=== PATIENT | male | born 1990 | race Caucasian/White ===

== ENCOUNTER 2016-12-20 09:42 | Emergency (ER) | payer OTHER ==
[~2016-12-20] VITALS: Ht 187.9 cm; Wt 129.3 kg
[~2016-12-20 09:42] MED LIST: AMOXICILLIN500 MG PO; ANUSOL-HC25 MG RC; AUGMENTIN ES-6100 ML PO; BACTRIM DS 8001 TA1 PO; CEPHALEXIN500 M1 PO; CLARITIN5 MG/5 ML PO; CORTISPORIN 1%-10 M1 OT; Claritin-D 10 M1 T24 PO; FLAGYL500 MG PO; FLEXERIL5 MG PO; HYDROCODONE BIT1 T11 PO; IBU800 M1 PO; LEVAQUIN750 M1 PO; LEVOFLOXACIN500 MG PO; MEDROL DOSEPAK4 MG PO; MOTRIN800 MG PO; NKHM; NO DAILY MEDS; NORCO 5-325 TA1 EACH PO; PENICILLIN VK500 MG PO; PREDNICOT20 MG PO; PREDNISONE10 MG PO; PROAIR HFA0.09 MG/AC INH; Peridex 473 ML473 ML PO; TRAMADOL HCL50 MG PO; TRIMOX500 MG PO; VENTOLIN H0.09 MG/AC INH; ZITHROMAX Z PA250 MG PO; ZOFRAN4 MG PO
[2016-12-20 09:56] VITALS: BP 116/78
[2016-12-20] MEDS ORDERED: Tobrex Ophth S2.5 ML OPH (10:40)
[2016-12-20] MEDS ORDERED: ACULAR 0.5%3 ML OPH (10:40)
== END 2016-12-20 10:45 | disposition home or self-care (01) ==
LOC: ED 09:42
DX: S05.02XA Injury of conjunctiva and corneal abrasion without foreign body, left eye, initial encounter (principal); F17.200 Nicotine dependence, unspecified, uncomplicated; X58.XXXA Exposure to other specified factors, initial encounter; Y93.89 Activity, other specified; Y92.9 Unspecified place or not applicable; Y99.9 Unspecified external cause status

== ENCOUNTER → 2017-03-19 | Outpatient (CLI) | payer OTHER ==
[~2017-03-19] MED LIST changes: +ACULAR 0.5%3 ML OPH; +Tobrex Ophth S2.5 ML OPH
== END | disposition home or self-care (01) ==
LOC: CT 13:46
DX: S92.2 Fracture of other and unspecified tarsal bone(s) (principal); S90.30XD Contusion of unspecified foot, subsequent encounter; S92.253D Displaced fracture of navicular [scaphoid] of unspecified foot, subsequent encounter for fracture with routine healing; S90.30XA Contusion of unspecified foot, initial encounter; X58.XXXD Exposure to other specified factors, subsequent encounter

== ENCOUNTER 2017-08-12 12:22 | Emergency (ER) | payer OTHER ==
[~2017-08-12] VITALS: Ht 187.9 cm; Wt 131.5 kg
[2017-08-12 12:41] VITALS: BP 154/91
[2017-08-12] MEDS ORDERED: NORCO 5-325 TA1 EACH PO (13:24)
[2017-08-12] MEDS ORDERED: AMOXICILLIN500 M2 PO (13:24)
== END 2017-08-12 14:23 | disposition home or self-care (01) ==
LOC: ED 12:22
DX: H66.91 Otitis media, unspecified, right ear (principal); F17.200 Nicotine dependence, unspecified, uncomplicated

== ENCOUNTER 2017-10-13 13:32 | Emergency (ER) | payer OTHER ==
[~2017-10-13] VITALS: Ht 187.9 cm; Wt 140.6 kg
[~2017-10-13 13:32] MED LIST changes: +AMOXICILLIN500 M2 PO
[2017-10-13 13:48] VITALS: BP 135/79
[2017-10-13] MEDS ORDERED: NAPROSYN500 MG PO (14:06)
[2017-10-13] MEDS ORDERED: CYCLOBENZAPRINE10 MG PO (14:06)
== END 2017-10-13 14:47 | disposition home or self-care (01) ==
LOC: ED 13:32
DX: M54.42 Lumbago with sciatica, left side (principal); F17.200 Nicotine dependence, unspecified, uncomplicated; E78.5 Hyperlipidemia, unspecified; E66.9 Obesity, unspecified

== ENCOUNTER → 2017-12-09 | Outpatient (CLI) | payer OTHER ==
[~2017-12-09] MED LIST changes: +CYCLOBENZAPRINE10 MG PO; +DOXYCYCLINE100 M3 PO; +NAPROSYN500 MG PO; +NORCO 7.5-3251 EACH PO; +XARELTO10 MG PO
== END | disposition home or self-care (01) ==
LOC: RESCLI 02:59
DX: Z01.818 Encounter for other preprocedural examination (principal); R00.0 Tachycardia, unspecified; R03.0 Elevated blood-pressure reading, without diagnosis of hypertension; E66.01 Morbid (severe) obesity due to excess calories; Z72.0 Tobacco use

== ENCOUNTER → 2017-12-12 | Outpatient (CLI) | payer OTHER ==
[2017-12-12 13:49] LABS: BASO # 0.1 10*3/uL (0.0-0.1); BASO % 0.7 % (0.0-1.0); EOS # 0.2 10*3/uL (0.0-0.4); EOS % 2.4 % (1.0-4.0); HEMATOCRIT 46.5 % (42.0-52.0); HEMOGLOBIN 15.6 g/dl (14.0-18.0); LYMPH # 2.3 10*3/uL (1.3-4.4); LYMPH % 30.8 % (27.0-41.0); MEAN CELL VOLUME 86.8 fl (80.0-94.0); MEAN CORPUSCULAR HGB 29.1 pg (27.0-31.0); MEAN CORPUSCULAR HGB CONC 33.5 g/dl (33.0-37.0); MEAN PLATELET VOLUME 9.2 fl (9.6-12.3); MONO # 0.6 10*3/uL (0.1-1.0); MONO % 7.6 % (3.0-9.0); NEUT # 4.3 10*3/uL (2.3-7.9); NEUT % 58.1 % (47.0-73.0); PLATELET COUNT AUTOMATED 250 10*3/uL (130-400); RED BLOOD COUNT 5.36 10*6/uL (4.50-5.90); RED CELL DISTRI WIDTH 12.2 % (0-14.5); WHITE BLOOD COUNT 7.5 10*3/uL (4.8-10.8)
[2017-12-12 14:41] LABS: ACT PARTIAL THROMBO TIME 25.3 SECONDS (20.8-31.5)
== END | disposition home or self-care (01) ==
LOC: LAB 12:36
PROVIDERS: Podiatrist
DX: S92.254D Nondisplaced fracture of navicular [scaphoid] of right foot, subsequent encounter for fracture with routine healing (principal); S92.234D Nondisplaced fracture of intermediate cuneiform of right foot, subsequent encounter for fracture with routine healing; X58.XXXD Exposure to other specified factors, subsequent encounter

== ENCOUNTER → 2017-12-18 | Day surgery (SDC) | payer OTHER ==
[~2017-12-18] VITALS: Ht 157.4 cm; Wt 140.6 kg
[2017-12-18] VITALS (9 sets, daily range): BP systolic 110–156; BP diastolic 51–90
--- NOTE | ~2017-12-18 | O ---
[place], [place] OPERATIVE NOTE NAME: IQRA FRIEDMAN [facility] #: [id number] UNIT #: [id number] ROOM: DOCTOR: FRANK KAUR DPM BIRTHDATE: [birth year] DOS: 12/18/2017 SURGEON: Dr. Frank Kaur HAY SORTER: Delbert Cordero, PGY3 PREOPERATIVE DIAGNOSES: Right lower extremity: 1. Gastrocnemius equinus. 2. Calcaneal valgus. 3. Midfoot arthritis. 4. Hallux valgus/hallux limitus. POSTOPERATIVE DIAGNOSES: Right lower extremity: 1. Gastrocnemius equinus. 2. Calcaneal valgus. 3. Midfoot arthritis. 4. Hallux valgus/hallux limitus. PROCEDURE: 1. Gastrocnemius recession. 2. Calcaneal osteotomy slid medially. 3. Midfoot fusion, navicular cuneiform. 4. Lapidus bunionectomy. PROCEDURE IN DETAIL: The patient was seen in preop holding area, placed in supine position and agreed. He agreed to site marking and he was brought into the OR, placed on a well padded OR table where general anesthesia was achieved. Once general anesthesia was achieved, the right foot and leg were prepped and draped in sterile fashion, hemostasis was accomplished with a thigh tourniquet. At this point, appropriate timeout was performed and the operating room concurred. At this time, the tourniquet was inflated to 300 mmHg. PROCEDURE NUMBER 1: Gastrocnemius recession. Attention was directed to the posteromedial one-third of the lower leg where an incision was made over the gastroc aponeurosis. It was deepened in the same plane using sharp scissors, avoid neurovascular structures, carried deep down to the deep tissues where it was incised. Deep fascia was identified and at this time the gastroc aponeurosis was identified. At this time, a Destiney procedure was performed increasing range of motion of the ankle joint. The deep tissue was closed using 0 Vicryl. Skin was closed with 2-0 nylon. PROCEDURE NUMBER 2: Percutaneous calcaneal displacement osteotomy slid medially. Attention was directed to the inferior medial aspect of the calcaneus where a small stab incision made below the inferior cortex of the calcaneus keeping the same plane using sharp scissors, avoiding neurovascular structures, carried down to the deep tissues where a blunt subfascial dissection was performed from inferior medial to superomedially. At this time, the skin was tented superomedially and at this point in time, another stab incision was made. Next, a Gigli saw was retrieved from superior medial to inferior medial. Next, a straight hemostat was used to go across from superior medial to superior [place], [place] OPERATIVE NOTE [facility] [id number] UNIT #: [id number] ROOM: DOCTOR: FRANK KAUR DPM BIRTHDATE: [birth year] lateral over the dorsal surface of the calcaneus. This was done anterior to the Achilles tendon and posterior neurovascular bundles in the Kager's triangle. The skin was tented laterally and a stab incision made laterally avoiding the sural nerve. The hemostat then was removed from the medial incision and entered into the lateral incision over the superior aspect of the calcaneus. At this point in time, the Gigli saw was obtained through the superior medial incision and brought through the superior portion of the calcaneus and exiting out superior lateral. Next, a stab incision was made adjacent to the superior medial one just opposite to that where a stab incision made and again blunt subfascial dissection was performed superior lateral, superior inferiorly. At this time, using a hemostat, the end of the Gigli saw of the superior lateral aspect of the calcaneus was obtained and brought down inferiorly laterally from superior lateral to inferior lateral. At this time, it was checked on fluoroscopy, noting good anatomic alignment and the Gigli saw was used to perform a percutaneous calcaneal displacement osteotomy. The Gigli saw was cut from the skin. It was exited out of the medial lateral aspect of the calcaneus. At this time, the calcaneus was slid medially approximately 1 cm and it was locked in place and this was fixated with two 7.3 Synthes cannulated screws. This was fixated and noted to be very good fixation, was checked on the lateral view as well as a calcaneal axial view and noted to be in good position. The skin was then closed in 2-0 nylon. PROCEDURE NUMBER 3: Midfoot fusion. Attention was directed to the medial aspect of the foot where an incision was made along the dorsal medial aspect of the tarsal bones. This was deepened in the same plane with sharp scissors, avoiding neurovascular structures, carried down to the deep tissues. At this time, there was significant amount of arthrosis noted through the navicular cuneiform and the cuneiform joints. The prominent bone was resected and excised removed in total with the osteotome and mallet. This was resected and at this point in time, the navicular cuneiform joint was taken down. There was noted to be a significant amount of arthrosis here within the dorsal and medial portion of this bone and the articular surface was taken down. A significant amount of time was spent preparing the joint for fusion with using osteotomes, mallets, rongeurs, high speed burs, curettes and 2.5 drills. Significant amount of time was spent preparing exposed only cancellous bone here with exposed navicular cuneiform joint. This was temporally fixated and checked to be in good anatomic alignment. PROCEDURE NUMBER 4: Lapidus bunionectomy. Attention was directed at the tarsometatarsal joint number 1. Incision was made, it was deepened in the same plane using sharp scissors, avoiding neurovascular structures, carried down through the deep tissues. At this time, the TMT 1 was exposed. Using oscillating saw, osteotomes, mallets, rongeurs, a significant amount of time was spent preparing the joint at the TMT 1. This was prepared using power saw, osteotomes, mallets, curettes and 2.5 drill bits. At this time, prepared the joint with raw cancellous bone exposed. Good bleeding noted at the area, did temporary fixing and noted to be in good anatomic alignment, it was temporarily fixated. At this point in time, temporary fixation noted. The Synthes 4.0 solid cortical screw was placed from the distal proximal and there was another one turn from inferior metatarsal to lateral navicular, from the medial [place], [place] OPERATIVE NOTE NAME: IQRA FRIEDMAN UNIT #: [id number] ROOM: DOCTOR: FRANK KAUR DPM BIRTHDATE: [birth year] navicular to the first metatarsal and also the intermediate cuneiform and another screw from first metatarsal, second metatarsal providing multiple points of fixation with 4.0 solid cortical screws were used in the procedure today stabilizing the TMT 1 as well as the navicular cuneiform joint with the construct. There was a total of 6 screws used, one from the navicular to the area of the medial cuneiform, one from the navicular to the medial cuneiform and the base of first metatarsal, one from the base of first metatarsal, second metatarsal and one from the base of the first metatarsal and navicular laterally and one from the medial aspect of the first metatarsal to the navicular medially. At this point in time, all voided areas were packed with allogenic bone, which was soaked in the patient's bone. The alarm on the tourniquet was not working and quarry manager or nurse identifies as 1 hour 48 minutes of tourniquet use was realized and the tourniquet was dropped immediately. The remaining portion of the bone graft was packed tightly into the TMT 1, navicular cuneiform joints and checked under fluoroscopy and noted to be in good anatomic alignment. The surgical wounds were sutured with 0 Vicryl for deep tissues and the skin was closed using 2-0 nylon. There were many problems with instrumentation, which delayed the surgery to last as long as it did as the equipment was not ready or could not be found throughout the procedure for a significant period of time, which delayed the surgery take out longer to be done, but when the tourniquet was dropped, good cap refill time was noted to return to all digits of the right foot immediately. The wounds closed very nicely with a combination of Vicryl and 2-0 nylon. The patient was anesthetized with 30 mL of 0.5% plain Marcaine, 10 mL proximally gastrocsoleus site and 20 around the ankle. The surgical wounds were dressed with Betadine-soaked Adaptic and 4x4s, Soo fashion. A Pereira compressive univalved type of BK cast was applied to his right lower extremity. He tolerated the procedure well. FRANK KAUR DPM CM:OPRECORD:OPERATIVE NOTE 2351 4 FRANK KAUR DPM 12/19/17144 interface
--- NOTE | ~2017-12-18 | WRIGHTHP ---
[place], [place] PATIENT HISTORY AND PHYSICAL EXAM NAME: IQRA FRIEDMAN [facility] #: [id number] UNIT #: [id number] ROOM: DOCTOR: EDDIE KAUR DPM BIRTHDATE: [birth year] DOS: 12/18/2017 INDICATIONS: The patient is seen for a chief complaint of painful right foot. He has a Worker's Comp injury where he sustained an injury to his foot, subsequently he has developed osteoarthritis, pain and deformity of his right foot. There is noted to be a navicular cuneiform bridge, a mild hallux valgus deformity with a mild dorsal bunion, secondary midfoot arthrosis, all related to the deformity. Upon resting calcaneal stance position, patient pronates through his foot and has a calcaneal valgus deformity with increased pain to the medial and longitudinal arch in the midfoot, right. With this in mind, the consent was reviewed with him in detail in the office. He signed off, acknowledged it. Also today prior to surgery, appropriate site marking was performed. He and his family member were present and reviewed the consent and he appeared to understand that as well. With this in mind, he was set up for surgery at the [facility]. Appropriate site marking was performed. Appropriate review of the consent was performed and also perioperative management in particular postop management in terms of movement in an attempt to prevent DVT using the anticoagulation therapy, a postoperative antibiotic and staying nonweightbearing was reviewed with him and family. He agreed and understood this and verbally consented to all this. LOWER EXTREMITY PHYSICAL EXAMINATION: VASCULAR: Palpable pedal pulses, 2/4 DP and PT bilaterally. Bilaterally equal cap refill time. NEUROLOGICAL: He has intact sensation to his right lower extremity. DERMATOLOGICAL: There are no gross deformities. MUSCULOSKELETAL: He has a tight posterior muscle group, has ankle contracture resulting in a gastroc soleus equinus contracture. Also, has a calcaneal valgus plane upon resting calcaneal stance position and pain along the medial and longitudinal arch of the mid foot of the right. Also, there is limitation in range of motion of the first metatarsophalangeal secondary to deformity of the mid foot with an elevated first ray and dorsal bunion. ORTHOPEDIC: Calcaneal valgus midfoot arthritis, hallux valgus and dorsal bunion of the right foot. SURGEON: Dr. Eddie Kaur. PIPELINE MAINTENANCE SUPERVISOR: Delbert Cordero, PGY3. PREOPERATIVE DIAGNOSES: Right lower extremity. 1. Gastrocnemius equinus. 2. Calcaneal valgus. 3. Mid foot arthritis. 4. Hallux valgus/hallux limitus. POSTOPERATIVE DIAGNOSES: Right lower extremity. 1. Gastrocnemius equinus. 2. Calcaneal valgus. 3. Mid foot arthritis. 4. Hallux valgus/hallux limitus. [place], [place] PATIENT HISTORY AND PHYSICAL EXAM [facility]: [facility] [id number] UNIT #: [id number] ROOM: DOCTOR: EDDIE KAUR DPM BIRTHDATE: [birth year] PROCEDURE: 1. Gastrocnemius recession. 2. Calcaneal osteotomy slid medially. 3. Midfoot fusion of the navicular cuneiform. 4. Lapidus EDDIE KAUR DPM CM:HISPHYS:PATIENT HISTORY AND PHYSICAL EXAMINATION [id number] EDDIE KAUR DPM 12/19/17 0121 interface
== END ==
LOC: SDC 12-12 12:30
DX: M21.6X1 Other acquired deformities of right foot (principal); M13.871 Other specified arthritis, right ankle and foot; F17.210 Nicotine dependence, cigarettes, uncomplicated; M20.11 Hallux valgus (acquired), right foot; M21.071 Valgus deformity, not elsewhere classified, right ankle

== ENCOUNTER 2017-12-19 22:45 | Emergency (ER) | payer OTHER ==
[~2017-12-19] VITALS: Ht 187.9 cm; Wt 140.6 kg
[2017-12-19 23:26] LABS: BASO % 0.3 % (0.0-1.0); EOS # 0.1 10*3/uL (0.0-0.4); EOS % 0.5 % (1.0-4.0); HEMOGLOBIN 12.5 g/dl (14.0-18.0); LYMPH % 16.3 % (27.0-41.0); MEAN CELL VOLUME 87.6 fl (80.0-94.0); MEAN CORPUSCULAR HGB 28.8 pg (27.0-31.0); MEAN CORPUSCULAR HGB CONC 32.9 g/dl (33.0-37.0); MEAN PLATELET VOLUME 8.8 fl (9.6-12.3); MONO # 1.1 10*3/uL (0.1-1.0); MONO % 9.2 % (3.0-9.0); NEUT # 9.1 10*3/uL (2.3-7.9); NEUT % 73.1 % (47.0-73.0); PLATELET COUNT AUTOMATED 243 10*3/uL (130-400); RED BLOOD COUNT 4.34 10*6/uL (4.50-5.90); RED CELL DISTRI WIDTH 12.2 % (0-14.5); WHITE BLOOD COUNT 12.4 10*3/uL (4.8-10.8)
[2017-12-19 23:41] LABS: ALBUMIN 3.8 gm/dl (3.1-4.5); ALKALINE PHOSPHATASE 74 U/L (45-117); BUN 8 mg/dl (7-24); CHLORIDE 101 mmol/L (98-107); CREATININE 0.99 mg/dL (0.70-1.30); POTASSIUM 3.2 mmol/L (3.5-5.1); SGOT/AST 26 IU/L (3-35); SGPT/ALT 37 U/L (12-78); SODIUM 137 mmol/L (136-145)
[2017-12-19 23:54] LABS: CPK 1072 U/L (39-308)
[2017-12-20 00:40] VITALS: BP 153/86
== END 2017-12-20 02:24 | disposition short-term general hospital (02) ==
LOC: ED 22:45
PROVIDERS: Student in an Organized Health Care Education/Training Program
DX: T79.A21A Traumatic compartment syndrome of right lower extremity, initial encounter (principal); E83.41 Hypermagnesemia; R73.9 Hyperglycemia, unspecified; E83.51 Hypocalcemia; Z79.899 Other long term (current) drug therapy; X58.XXXA Exposure to other specified factors, initial encounter

== ENCOUNTER → 2018-02-24 | Outpatient (CLI) | payer OTHER ==
[~2018-02-24] MED LIST changes: +PERCOCET 7.5-31 EACH PO; +SEPTDS PO
== END ==
LOC: WOUNDCARE 03:04
DX: S97.81XA Crushing injury of right foot, initial encounter (principal); E78.5 Hyperlipidemia, unspecified; F17.210 Nicotine dependence, cigarettes, uncomplicated; X58.XXXA Exposure to other specified factors, initial encounter; Y93.89 Activity, other specified; Y92.89 Other specified places as the place of occurrence of the external cause; Y99.8 Other external cause status

== ENCOUNTER → 2018-02-26 | Outpatient (CLI) | payer OTHER ==
[~2018-02-26] MED LIST changes: -PERCOCET 7.5-31 EACH PO; -SEPTDS PO
== END ==
LOC: RAD 13:07
DX: Z13.89 Encounter for screening for other disorder (principal); I81 Portal vein thrombosis

== ENCOUNTER 2018-03-06 01:12 | Emergency (ER) | payer SELFPAY ==
[~2018-03-06] VITALS: Ht 187.9 cm; Wt 147.4 kg
[2018-03-06] MEDS ORDERED: SEPTDS PO (01:33)
[2018-03-06] MEDS ORDERED: PERCOCET 7.5-31 EACH PO (01:34)
[2018-03-06 01:36] LABS: BASO # 0.1 10*3/uL (0.0-0.1); BASO % 0.8 % (0.0-1.0); EOS # 0.3 10*3/uL (0.0-0.4); EOS % 2.8 % (1.0-4.0); HEMATOCRIT 48.7 % (42.0-52.0); HEMOGLOBIN 15.7 g/dl (14.0-18.0); LYMPH # 2.6 10*3/uL (1.3-4.4); LYMPH % 29.1 % (27.0-41.0); MEAN CELL VOLUME 87.6 fl (80.0-94.0); MEAN CORPUSCULAR HGB 28.2 pg (27.0-31.0); MEAN CORPUSCULAR HGB CONC 32.2 g/dl (33.0-37.0); MEAN PLATELET VOLUME 8.8 fl (9.6-12.3); MONO # 0.7 10*3/uL (0.1-1.0); MONO % 7.5 % (3.0-9.0); NEUT # 5.3 10*3/uL (2.3-7.9); PLATELET COUNT AUTOMATED 241 10*3/uL (130-400); RED BLOOD COUNT 5.56 10*6/uL (4.50-5.90); RED CELL DISTRI WIDTH 13.4 % (0-14.5); WHITE BLOOD COUNT 8.9 10*3/uL (4.8-10.8)
[2018-03-06 01:53] LABS: ALBUMIN 3.6 gm/dl (3.1-4.5); ALKALINE PHOSPHATASE 92 U/L (45-117); BUN 13 mg/dl (7-24); CHLORIDE 104 mmol/L (98-107); POTASSIUM 4.2 mmol/L (3.5-5.1); SGOT/AST 14 IU/L (3-35); SGPT/ALT 38 U/L (12-78); SODIUM 137 mmol/L (136-145); TOTAL PROTEIN 7.2 gm/dL (6.4-8.2)
[2018-03-06 01:54] LABS: TROPONIN I < 0.015 ng/ml (<0.045)
[2018-03-06 03:04] VITALS: BP 118/74
== END 2018-03-06 03:32 | disposition home or self-care (01) ==
LOC: ED 01:12
PROVIDERS: Student in an Organized Health Care Education/Training Program
DX: R07.89 Other chest pain (principal); R06.02 Shortness of breath; F17.200 Nicotine dependence, unspecified, uncomplicated; E78.5 Hyperlipidemia, unspecified; E66.9 Obesity, unspecified; Z79.899 Other long term (current) drug therapy

== ENCOUNTER → 2018-03-19 | Outpatient (CLI) | payer OTHER ==
[~2018-03-19] MED LIST changes: +PERCOCET 7.5-31 EACH PO; +SEPTDS PO
== END | disposition home or self-care (01) ==
LOC: WOUNDCARE 01:46
DX: S97.81XA Crushing injury of right foot, initial encounter (principal); E78.5 Hyperlipidemia, unspecified; F17.210 Nicotine dependence, cigarettes, uncomplicated; X58.XXXA Exposure to other specified factors, initial encounter; Y93.89 Activity, other specified; Y92.89 Other specified places as the place of occurrence of the external cause; Y99.8 Other external cause status

== ENCOUNTER → 2018-03-19 | Outpatient (CLI) | payer OTHER ==
[2018-03-19 09:34] VITALS: BP 141/70
== END | disposition home or self-care (01) ==
LOC: PICC 03-17 07:37
DX: M86.9 Osteomyelitis, unspecified (principal)

== ENCOUNTER → 2018-03-20 | Outpatient (CLI) | payer OTHER | END | disposition home or self-care (01) | LOC: WOUNDCARE 00:24 | DX: S97.81XA Crushing injury of right foot, initial encounter (principal); E78.5 Hyperlipidemia, unspecified; F17.210 Nicotine dependence, cigarettes, uncomplicated; X58.XXXA Exposure to other specified factors, initial encounter; Y93.89 Activity, other specified; Y92.89 Other specified places as the place of occurrence of the external cause; Y99.8 Other external cause status ==

== ENCOUNTER → 2018-03-24 | Outpatient (CLI) | payer OTHER | END | disposition home or self-care (01) | LOC: WOUNDCARE 10:43 | DX: S97.81XA Crushing injury of right foot, initial encounter (principal); E78.5 Hyperlipidemia, unspecified; F17.210 Nicotine dependence, cigarettes, uncomplicated; X58.XXXA Exposure to other specified factors, initial encounter; Y93.89 Activity, other specified; Y92.89 Other specified places as the place of occurrence of the external cause; Y99.8 Other external cause status ==

== ENCOUNTER → 2018-03-25 | Outpatient (CLI) | payer OTHER | END | disposition home or self-care (01) | LOC: WOUNDCARE 04:17 | DX: S97.81XA Crushing injury of right foot, initial encounter (principal); E78.5 Hyperlipidemia, unspecified; F17.210 Nicotine dependence, cigarettes, uncomplicated; X58.XXXA Exposure to other specified factors, initial encounter; Y93.89 Activity, other specified; Y92.89 Other specified places as the place of occurrence of the external cause; Y99.8 Other external cause status ==

== ENCOUNTER → 2018-03-26 | Outpatient (CLI) | payer OTHER | END | disposition home or self-care (01) | LOC: WOUNDCARE 01:48 | DX: S97.81XA Crushing injury of right foot, initial encounter (principal); E78.5 Hyperlipidemia, unspecified; F17.210 Nicotine dependence, cigarettes, uncomplicated; X58.XXXA Exposure to other specified factors, initial encounter; Y93.89 Activity, other specified; Y92.89 Other specified places as the place of occurrence of the external cause; Y99.8 Other external cause status ==

== ENCOUNTER → 2018-03-27 | Outpatient (CLI) | payer OTHER | END | disposition home or self-care (01) | LOC: WOUNDCARE 05:48 | DX: S97.81XA Crushing injury of right foot, initial encounter (principal); E78.5 Hyperlipidemia, unspecified; F17.210 Nicotine dependence, cigarettes, uncomplicated; X58.XXXA Exposure to other specified factors, initial encounter; Y93.89 Activity, other specified; Y92.89 Other specified places as the place of occurrence of the external cause; Y99.8 Other external cause status ==

== ENCOUNTER → 2018-04-01 | Outpatient (CLI) | payer OTHER | END | disposition home or self-care (01) | LOC: WOUNDCARE 08:20 | DX: S97.81XA Crushing injury of right foot, initial encounter (principal); E78.5 Hyperlipidemia, unspecified; F17.210 Nicotine dependence, cigarettes, uncomplicated; X58.XXXA Exposure to other specified factors, initial encounter; Y93.89 Activity, other specified; Y92.89 Other specified places as the place of occurrence of the external cause; Y99.8 Other external cause status ==

== ENCOUNTER → 2018-04-02 | Outpatient (CLI) | payer OTHER | END | disposition home or self-care (01) | LOC: WOUNDCARE 02:11 | DX: S97.81XA Crushing injury of right foot, initial encounter (principal); E78.5 Hyperlipidemia, unspecified; F17.210 Nicotine dependence, cigarettes, uncomplicated; X58.XXXA Exposure to other specified factors, initial encounter; Y93.89 Activity, other specified; Y92.89 Other specified places as the place of occurrence of the external cause; Y99.8 Other external cause status ==

== ENCOUNTER → 2018-04-04 | Outpatient (CLI) | payer OTHER | END | disposition home or self-care (01) | LOC: WOUNDCARE 02:01 | DX: S97.81XA Crushing injury of right foot, initial encounter (principal); E78.5 Hyperlipidemia, unspecified; F17.210 Nicotine dependence, cigarettes, uncomplicated; X58.XXXA Exposure to other specified factors, initial encounter; Y93.89 Activity, other specified; Y92.89 Other specified places as the place of occurrence of the external cause; Y99.8 Other external cause status ==

== ENCOUNTER → 2018-04-07 | Outpatient (CLI) | payer OTHER | END | disposition home or self-care (01) | LOC: WOUNDCARE 02:52 | DX: S97.81XA Crushing injury of right foot, initial encounter (principal); E78.5 Hyperlipidemia, unspecified; F17.210 Nicotine dependence, cigarettes, uncomplicated; X58.XXXA Exposure to other specified factors, initial encounter; Y93.89 Activity, other specified; Y92.89 Other specified places as the place of occurrence of the external cause; Y99.8 Other external cause status ==

== ENCOUNTER → 2018-04-08 | Outpatient (CLI) | payer OTHER | END | disposition home or self-care (01) | LOC: WOUNDCARE 02:39 | DX: S97.81XA Crushing injury of right foot, initial encounter (principal); E78.5 Hyperlipidemia, unspecified; F17.210 Nicotine dependence, cigarettes, uncomplicated; X58.XXXA Exposure to other specified factors, initial encounter; Y93.89 Activity, other specified; Y92.89 Other specified places as the place of occurrence of the external cause; Y99.8 Other external cause status ==

== ENCOUNTER → 2018-04-09 | Outpatient (CLI) | payer OTHER | END | disposition home or self-care (01) | LOC: WOUNDCARE 03:48 | DX: S97.81XA Crushing injury of right foot, initial encounter (principal); E78.5 Hyperlipidemia, unspecified; F17.210 Nicotine dependence, cigarettes, uncomplicated; X58.XXXA Exposure to other specified factors, initial encounter; Y93.89 Activity, other specified; Y92.89 Other specified places as the place of occurrence of the external cause; Y99.8 Other external cause status ==

== ENCOUNTER → 2018-04-10 | Outpatient (CLI) | payer OTHER | END | disposition home or self-care (01) | LOC: WOUNDCARE 02:33 | DX: S97.81XA Crushing injury of right foot, initial encounter (principal); E78.5 Hyperlipidemia, unspecified; F17.210 Nicotine dependence, cigarettes, uncomplicated; X58.XXXA Exposure to other specified factors, initial encounter; Y93.89 Activity, other specified; Y92.89 Other specified places as the place of occurrence of the external cause; Y99.8 Other external cause status ==

== ENCOUNTER → 2018-04-11 | Outpatient (CLI) | payer OTHER ==
[~2018-04-11] MED LIST changes: +INVANZ1 GM IV
== END | disposition home or self-care (01) ==
LOC: WOUNDCARE 02:59
DX: S97.81XA Crushing injury of right foot, initial encounter (principal); E78.5 Hyperlipidemia, unspecified; F17.210 Nicotine dependence, cigarettes, uncomplicated; X58.XXXA Exposure to other specified factors, initial encounter; Y93.89 Activity, other specified; Y92.89 Other specified places as the place of occurrence of the external cause; Y99.8 Other external cause status

== ENCOUNTER → 2018-04-14 | Outpatient (CLI) | payer OTHER | END | disposition home or self-care (01) | LOC: WOUNDCARE 01:46 | DX: S97.81XA Crushing injury of right foot, initial encounter (principal); E78.5 Hyperlipidemia, unspecified; F17.210 Nicotine dependence, cigarettes, uncomplicated; X58.XXXA Exposure to other specified factors, initial encounter; Y93.89 Activity, other specified; Y92.89 Other specified places as the place of occurrence of the external cause; Y99.8 Other external cause status ==

== ENCOUNTER → 2018-04-15 | Outpatient (CLI) | payer OTHER | END | disposition home or self-care (01) | LOC: WOUNDCARE 02:08 | DX: S97.81XA Crushing injury of right foot, initial encounter (principal); E78.5 Hyperlipidemia, unspecified; F17.210 Nicotine dependence, cigarettes, uncomplicated; X58.XXXA Exposure to other specified factors, initial encounter; Y93.89 Activity, other specified; Y92.89 Other specified places as the place of occurrence of the external cause; Y99.8 Other external cause status ==

== ENCOUNTER → 2018-04-16 | Outpatient (CLI) | payer OTHER | END | disposition home or self-care (01) | LOC: WOUNDCARE 01:28 | DX: S87.81XA Crushing injury of right lower leg, initial encounter (principal); E78.5 Hyperlipidemia, unspecified; F17.210 Nicotine dependence, cigarettes, uncomplicated; X58.XXXA Exposure to other specified factors, initial encounter; Y93.89 Activity, other specified; Y92.89 Other specified places as the place of occurrence of the external cause; Y99.8 Other external cause status ==

== ENCOUNTER → 2018-04-17 | Outpatient (CLI) | payer OTHER | END | disposition home or self-care (01) | LOC: WOUNDCARE 01:19 | DX: S97.81XA Crushing injury of right foot, initial encounter (principal); E78.5 Hyperlipidemia, unspecified; F17.210 Nicotine dependence, cigarettes, uncomplicated; X58.XXXA Exposure to other specified factors, initial encounter; Y93.89 Activity, other specified; Y92.89 Other specified places as the place of occurrence of the external cause; Y99.8 Other external cause status ==

== ENCOUNTER → 2018-04-18 | Outpatient (CLI) | payer OTHER ==
[~2018-04-18] MED LIST changes: +ULTRAM50 MG PO
== END | disposition home or self-care (01) ==
LOC: WOUNDCARE 02:41
DX: S97.81XA Crushing injury of right foot, initial encounter (principal); E78.5 Hyperlipidemia, unspecified; F17.210 Nicotine dependence, cigarettes, uncomplicated; X58.XXXA Exposure to other specified factors, initial encounter; Y93.89 Activity, other specified; Y92.89 Other specified places as the place of occurrence of the external cause; Y99.8 Other external cause status

== ENCOUNTER → 2018-04-21 | Day surgery (SDC) | payer OTHER ==
[~2018-04-21] VITALS: Ht 187.9 cm; Wt 139.3 kg
[~2018-04-21] MED LIST changes: +DOXYCYCLINE100 MG PO; +Motrin,Rufen800 MG PO; +TYLENOL325 M2 PO; +XARE20MG PO
--- NOTE | ~2018-04-21 | O ---
[place], [place] OPERATIVE NOTE NAME: IQRA FRIEDMAN [facility] #: [id number] UNIT #: [id number] ROOM: DOCTOR: FRANK KAUR DPM BIRTHDATE: [birth year] DOS: 04/21/2018 SURGEON: Frank Kaur DPM. BENDING MACHINE SET UP OPERATOR: Tripp Garcia, PGY-2. PREOPERATIVE DIAGNOSIS: Chronic osteomyelitis of the right midfoot. POSTOPERATIVE DIAGNOSES: Chronic osteomyelitis of the right midfoot and also painful hardware. PROCEDURES: 1. Bone debridement, right midfoot and bone was sent for Gram stain, aerobic, fungal, acid fast, Gram-stain, also bone was sent for pathology permanent. 2. Removal of hardware. 3. Abductor hallucis muscle transfer to deficit. 4. Application of Integra. 5. Application of negative pressure therapy. LOWER EXTREMITY PHYSICAL EXAMINATION VASCULAR: Palpable pedal pulses, 2/4 DP and PT of the right. Good cap refill time. There is some peripheral edema secondary to his chronic wound of his right foot. NEUROLOGICAL: He has intact epicritic sensation right with some decrease around the surgical site and wound site due to large bone. DERMATOLOGIC: He has an open wound that travels down the bone, measures by length 3 cm x 2 cm by width, travels right down to bone on the medial aspect of his right foot. There are no cardinal signs of acute infection. This was consistent with chronic osteomyelitis on his right and there was exposed bone. There was fibrous tissue noted around there and there is one hardware that was exposed and one screw that was exposed of his right foot. MUSCULOSKELETAL: He has a stable tarsometatarsal arthrodesis clinically. ORTHOPEDIC EXAM: Consistent with chronic osteomyelitis of his right midfoot. The patient was seen in preop holding area, appropriate site marking was performed. The patient and his mother concurred and he agreed and signed the informed consent. He was brought into the OR and placed on well padded OR table where anesthesia was achieved. Once anesthesia was achieved, his right leg was prepped and draped in a sterile fashion. At this time, appropriate timeout was performed and a mid thigh tourniquet had been applied prior to the prep. This was inflated to 300 mmHg. PROCEDURE #1 and #2: BONE DEBRIDEMENT WITH BONE CULTURES AND BIOPSIES OF THE RIGHT MIDFOOT. Attention was directed to the wound, which measured 3 x 2 cm the necrotic tissue in the central area of the wound. This was debrided extensively and the tissue was sent for Gram stain, aerobic, anaerobic, fungal and acid fast cultures. Next, a rongeur was used and significant amount of bone was debrided to a bleeding healthy bone and bone was sent for Gram stain, aerobic, anaerobic, fungal, acid fast as well as a bone biopsy. After the bone was debrided, a partial portion of the 4.0 screw was identified and this was checked under [place], [place] OPERATIVE NOTE NAME: IQRA FRIEDMAN Nancy UNIT #: [id number] ROOM: DOCTOR: FRANK KAUR DPM BIRTHDATE: [birth year] fluoroscopy and then the 4.0 mm screw was removed. After irrigation and cleansing the area, the tissues looked pretty healthy and more "clean bone" was debrided to see if there was actually, what I felt, was healthy bone at the level of the infection and chronicity of the osteomyelitis. I was hoping that this area would be negative. And that clean bone would be determined. After that debridement, the area was flushed with copious amounts of sterile saline. PROCEDURE #3: TRANSFER OF THE ABDUCTOR HALLUCIS MUSCLE: Attention was directed to midline of the foot at the neck of the first metatarsal to the base of the foot where a 13 cm incision was made. It was deepened in the same plane using sharp scissors, avoiding neurovascular structures, carried down to deep tissues where the deep tissues were and the adipose and fascial layer was identified. At this time, the distal insertion of the abductor hallucis tendon was identified of great toe and this was cut and this was gradually and slowly and carefully lifted proximal leaving the proximal perforators intact of the abductor hallucis muscle belly. With the perforators intact, the distal stump on the abductor hallucis was measured to transfer into the large ulceration down to the bone. An oblique incision was made obliquely from the abductor hallucis muscle belly to the wound and the tissues then were freed medially and laterally allowing the abductor hallucis muscle to be transferred right into the deficit of the exposed bone from the wound. At this point in time, using 3-0 Monocryl the abductor hallucis muscle fit very nicely. This was sutured in the periphery of all the soft tissues of the wound on the medial aspect of the right foot and fitted very nicely and without stress on any of the tissues. PROCEDURE #4: APPLICATION OF INTEGRA GRAFT: At this time, a bi-layered piece of 2 x 2 Integra graft was used and identified and it was cut to fit into the deficit. This fit very nicely and this is stable into the peripheral skin fitting into the wound perfectly in the deficit. Also rheumatology specialist holes were inserted into the Integra. Then, the deep tissues on the harvested site were closed using 0 Vicryl and 3-0 Monocryl and remaining portion of the insertion site was sutured with 3-0 Monocryl. The Integra graft was anchored down with dawna and 2-0 nylon was used primary harvest site as well as transfer site up to where the Integra was using 2-0 nylon. PROCEDURE #5: APPLICATION OF NEGATIVE PRESSURE THERAPY: At this point in time, all the classic steps of applying negative pressure therapy were applied creating a seal and the attempt was to put the wound VAC on 75 mm of pressure; however, this VAC would not go so it was set at 125. The surgical wounds were dressed with Betadine-soaked Adaptic, 4 x 4s, Soo sterile fashion. The tourniquet had been dropped approximately 20 minutes at the end of the procedure, good cap refill time was noted to return to all digits of the right foot. The patient appeared to tolerate the procedure and anesthesia well. Also the patient was injected with 30 mL of 0.5% Marcaine about the ankle joint, proximal to the ankle joint prior to dressings and an univalve BK Pereira type of cast was applied to his right lower extremity. The patient tolerated the procedure well. [place], [place] OPERATIVE NOTE NAME: IQRA FRIEDMAN UNIT #: [id number] ROOM: DOCTOR: FRANK KAUR DPM BIRTHDATE: [birth year] FRANK KAUR DPM CM:OPRECORD:OPERATIVE NOTE 1042 [id number] FRANK KAUR DPM 04/24/18 1423 interface
--- NOTE | ~2018-04-21 | WRIGHTHP ---
[place], [place] PATIENT HISTORY AND PHYSICAL EXAM NAME: IQRA FRIEDMAN [facility] #: [id number] UNIT #: [id number] ROOM: DOCTOR: FRANK KAUR DPM BIRTHDATE: [birth year] DOS: 04/21/2018 INTERIM NOTE: This is a patient who underwent a surgical procedure back several months ago. Following his surgery, he had pain. He went to the ER and ER physician thought that he had a compartment syndrome. To my surprise, the ER physician submitted him to a helicopter transportation to one of the hospitals in [place] as he thought he needs fasciotomies. At this time, when he landed to the hospital in [place], he was evaluated by their team and he was deemed to have no evidence of compartment syndrome. He was sent home and subsequently the patient's wound dehisced as it has been a longstanding chronic wound secondary to infection due to open area of his right foot. Subsequently, he has been getting hyperbaric treatments from local wound care, VAC treatments, local debridements and under the care of infectious disease also. Due to the chronicity of this wound, the depth of this wound and the size of it and the patient has a lot of social issues going on, particularly with marital issues, he wants to get this healed as quickly as possible. He has 4 more approved treatments of hyperbaric oxygen at this time and due to that, discussions of nonoperative and operative care were discussed with the patient and at this time, he has chosen operative care and hopes that this will speed up his recovery, which it should barring any significant complications. The post procedure was bone debridement, possible hardware removal, abductor hallucis muscle transfer to the deficit in the wound following debridement, application of Integra and then staged procedure where we may need to split thickness skin graft to follow in that right foot. With this in mind, he understands the pros, cons, risks and benefits and understands the risks and understands the need for surgery and understands the risks that he may even need additional surgery beyond today's surgery for split thickness skin graft and aware if anything does not work out as planned. With this in mind and understanding those pros, cons and risks and benefits, he presents to surgery today on 04/21/2018 for bone debridement, possible hardware removal, abductor hallucis muscle raising of the tissue and transferring it, application of Integra graft and application of negative pressure therapy. With this in mind, he understood and signed the consent. I reviewed again today with them in the preop holding area. His mother was there witnessing this, also appropriate site-marking was performed, he agreed as well as his mother. With this in mind, he was agreed and consented verbally, orally and also we discussed anticoagulation therapy, perioperative management and the patient has Xarelto to go back on it after the surgery and Ultram for pain as needed. He is to continue with IV antibiotics. [place], [place] PATIENT HISTORY AND PHYSICAL EXAM NAME: IQRA FRIEDMAN UNIT #: [id number] ROOM: DOCTOR: FRANK KAUR DPM BIRTHDATE: [birth year] FRANK KAUR DPM CM:HISPHYS:PATIENT HISTORY AND PHYSICAL EXAMINATION 1042 [id number] FRANK KAUR DPM 04/22/18 1505 interface
[2018-04-21 06:35] VITALS: BP 109/62
[2018-04-21 10:23] VITALS: BP 121/96
[2018-04-21 10:35] VITALS: BP 112/74
[2018-04-21 10:50] VITALS: BP 118/56
[2018-04-21 11:05] VITALS: BP 117/61
[2018-04-21 11:20] VITALS: BP 111/58
== END | disposition home or self-care (01) ==
LOC: SDC 04-17 10:15
DX: M86.171 Other acute osteomyelitis, right ankle and foot (principal); T81.89XA Other complications of procedures, not elsewhere classified, initial encounter; T84.84XA Pain due to internal orthopedic prosthetic devices, implants and grafts, initial encounter; J45.909 Unspecified asthma, uncomplicated; F32.9 Major depressive disorder, single episode, unspecified; F17.210 Nicotine dependence, cigarettes, uncomplicated; E66.09 Other obesity due to excess calories; Z68.39 Body mass index [BMI] 39.0-39.9, adult; Z79.899 Other long term (current) drug therapy; Z98.890 Other specified postprocedural states; Y83.8 Other surgical procedures as the cause of abnormal reaction of the patient, or of later complication, without mention of misadventure at the time of the procedure

== ENCOUNTER → 2018-04-23 | Outpatient (CLI) | payer OTHER ==
[~2018-04-23] MED LIST changes: -DOXYCYCLINE100 MG PO; -Motrin,Rufen800 MG PO; -TYLENOL325 M2 PO; -XARE20MG PO
== END | disposition home or self-care (01) ==
LOC: WOUNDCARE 00:49
DX: S97.81XA Crushing injury of right foot, initial encounter (principal); E78.5 Hyperlipidemia, unspecified; F17.210 Nicotine dependence, cigarettes, uncomplicated; X58.XXXA Exposure to other specified factors, initial encounter; Y93.89 Activity, other specified; Y92.89 Other specified places as the place of occurrence of the external cause; Y99.8 Other external cause status

== ENCOUNTER → 2018-04-24 | Outpatient (CLI) | payer OTHER ==
[~2018-04-24] MED LIST changes: +DOXYCYCLINE100 MG PO; +Motrin,Rufen800 MG PO; +TYLENOL325 M2 PO; +XARE20MG PO
== END | disposition home or self-care (01) ==
LOC: WOUNDCARE 02:49
DX: S97.81XA Crushing injury of right foot, initial encounter (principal); E78.5 Hyperlipidemia, unspecified; F17.210 Nicotine dependence, cigarettes, uncomplicated; X58.XXXA Exposure to other specified factors, initial encounter; Y93.89 Activity, other specified; Y92.89 Other specified places as the place of occurrence of the external cause; Y99.8 Other external cause status

== ENCOUNTER → 2018-04-25 | Outpatient (CLI) | payer OTHER | END | disposition home or self-care (01) | LOC: WOUNDCARE 01:47 | DX: S97.81XA Crushing injury of right foot, initial encounter (principal); E78.5 Hyperlipidemia, unspecified; F17.210 Nicotine dependence, cigarettes, uncomplicated; X58.XXXA Exposure to other specified factors, initial encounter; Y93.89 Activity, other specified; Y92.89 Other specified places as the place of occurrence of the external cause; Y99.8 Other external cause status ==

== ENCOUNTER → 2018-04-29 | Outpatient (CLI) | payer OTHER | END | disposition home or self-care (01) | LOC: WOUNDCARE 08:22 | DX: S87.81XA Crushing injury of right lower leg, initial encounter (principal); E78.5 Hyperlipidemia, unspecified; F17.210 Nicotine dependence, cigarettes, uncomplicated; X58.XXXA Exposure to other specified factors, initial encounter; Y93.89 Activity, other specified; Y92.89 Other specified places as the place of occurrence of the external cause; Y99.8 Other external cause status ==

== ENCOUNTER → 2018-05-01 | Outpatient (CLI) | payer OTHER | END | disposition home or self-care (01) | LOC: WOUNDCARE 12:23 | DX: S97.81XA Crushing injury of right foot, initial encounter (principal); E78.5 Hyperlipidemia, unspecified; F17.210 Nicotine dependence, cigarettes, uncomplicated; X58.XXXA Exposure to other specified factors, initial encounter; Y93.89 Activity, other specified; Y92.89 Other specified places as the place of occurrence of the external cause; Y99.8 Other external cause status ==

== ENCOUNTER → 2018-05-02 | Outpatient (CLI) | payer OTHER | END | disposition home or self-care (01) | LOC: WOUNDCARE 01:19 | DX: S97.81XA Crushing injury of right foot, initial encounter (principal); E78.5 Hyperlipidemia, unspecified; F17.210 Nicotine dependence, cigarettes, uncomplicated; X58.XXXA Exposure to other specified factors, initial encounter; Y93.89 Activity, other specified; Y92.89 Other specified places as the place of occurrence of the external cause; Y99.8 Other external cause status ==

== ENCOUNTER → 2018-05-05 | Outpatient (CLI) | payer OTHER | END | disposition home or self-care (01) | LOC: WOUNDCARE 04:09 | DX: S97.81XA Crushing injury of right foot, initial encounter (principal); E78.5 Hyperlipidemia, unspecified; F17.210 Nicotine dependence, cigarettes, uncomplicated; X58.XXXA Exposure to other specified factors, initial encounter; Y93.89 Activity, other specified; Y92.89 Other specified places as the place of occurrence of the external cause; Y99.8 Other external cause status ==

== ENCOUNTER → 2018-05-06 | Outpatient (CLI) | payer OTHER | END | disposition home or self-care (01) | LOC: WOUNDCARE 04:38 | DX: S99.921A Unspecified injury of right foot, initial encounter (principal); E78.5 Hyperlipidemia, unspecified; F17.210 Nicotine dependence, cigarettes, uncomplicated; X58.XXXA Exposure to other specified factors, initial encounter; Y93.89 Activity, other specified; Y92.89 Other specified places as the place of occurrence of the external cause; Y99.8 Other external cause status ==

== ENCOUNTER → 2018-05-07 | Outpatient (CLI) | payer OTHER | END | disposition home or self-care (01) | LOC: WOUNDCARE 01:28 | DX: S97.81XA Crushing injury of right foot, initial encounter (principal); E78.5 Hyperlipidemia, unspecified; F17.210 Nicotine dependence, cigarettes, uncomplicated; X58.XXXA Exposure to other specified factors, initial encounter; Y93.89 Activity, other specified; Y92.89 Other specified places as the place of occurrence of the external cause; Y99.8 Other external cause status ==

== ENCOUNTER → 2018-05-08 | Outpatient (CLI) | payer OTHER | END | disposition home or self-care (01) | LOC: WOUNDCARE 03:03 | DX: S97.81XA Crushing injury of right foot, initial encounter (principal); E78.5 Hyperlipidemia, unspecified; F17.210 Nicotine dependence, cigarettes, uncomplicated; X58.XXXA Exposure to other specified factors, initial encounter; Y93.89 Activity, other specified; Y92.89 Other specified places as the place of occurrence of the external cause; Y99.8 Other external cause status ==

== ENCOUNTER → 2018-05-09 | Outpatient (CLI) | payer OTHER | END | disposition home or self-care (01) | LOC: WOUNDCARE 01:44 | DX: S97.81XA Crushing injury of right foot, initial encounter (principal); F17.210 Nicotine dependence, cigarettes, uncomplicated; X58.XXXA Exposure to other specified factors, initial encounter; Y93.89 Activity, other specified; Y92.89 Other specified places as the place of occurrence of the external cause; Y99.8 Other external cause status; E78.5 Hyperlipidemia, unspecified ==

== ENCOUNTER → 2018-05-19 | Outpatient (CLI) | payer OTHER | END | disposition home or self-care (01) | LOC: WOUNDCARE 05:02 | DX: S87.81XA Crushing injury of right lower leg, initial encounter (principal); E78.5 Hyperlipidemia, unspecified; F17.210 Nicotine dependence, cigarettes, uncomplicated; X58.XXXA Exposure to other specified factors, initial encounter; Y93.89 Activity, other specified; Y92.89 Other specified places as the place of occurrence of the external cause; Y99.8 Other external cause status ==

== ENCOUNTER → 2018-05-21 | Outpatient (CLI) | payer OTHER | END | disposition home or self-care (01) | LOC: US 14:48 | DX: M79.89 Other specified soft tissue disorders (principal) ==

== ENCOUNTER → 2018-05-21 | Outpatient (CLI) | payer OTHER | END | disposition home or self-care (01) | LOC: WOUNDCARE 03:42 | DX: S97.81XA Crushing injury of right foot, initial encounter (principal); E78.5 Hyperlipidemia, unspecified; F17.210 Nicotine dependence, cigarettes, uncomplicated; X58.XXXA Exposure to other specified factors, initial encounter; Y93.89 Activity, other specified; Y92.89 Other specified places as the place of occurrence of the external cause; Y99.8 Other external cause status ==

== ENCOUNTER → 2018-05-22 | Outpatient (CLI) | payer OTHER | END | disposition home or self-care (01) | LOC: WOUNDCARE 00:44 | DX: S97.81XA Crushing injury of right foot, initial encounter (principal); E78.5 Hyperlipidemia, unspecified; F17.210 Nicotine dependence, cigarettes, uncomplicated; X58.XXXA Exposure to other specified factors, initial encounter; Y93.89 Activity, other specified; Y92.89 Other specified places as the place of occurrence of the external cause; Y99.8 Other external cause status ==

== ENCOUNTER → 2018-05-23 | Outpatient (CLI) | payer OTHER | END | disposition home or self-care (01) | LOC: WOUNDCARE 04:27 | DX: S97.81XA Crushing injury of right foot, initial encounter (principal); E78.5 Hyperlipidemia, unspecified; F17.210 Nicotine dependence, cigarettes, uncomplicated; X58.XXXA Exposure to other specified factors, initial encounter; Y93.89 Activity, other specified; Y92.89 Other specified places as the place of occurrence of the external cause; Y99.8 Other external cause status ==

== ENCOUNTER → 2018-05-26 | Outpatient (CLI) | payer OTHER | END | disposition home or self-care (01) | LOC: WOUNDCARE 03:46 | DX: S97.81XA Crushing injury of right foot, initial encounter (principal); E78.5 Hyperlipidemia, unspecified; F17.210 Nicotine dependence, cigarettes, uncomplicated; X58.XXXA Exposure to other specified factors, initial encounter; Y93.89 Activity, other specified; Y92.89 Other specified places as the place of occurrence of the external cause; Y99.8 Other external cause status ==

== ENCOUNTER → 2018-05-27 | Outpatient (CLI) | payer OTHER | END | disposition home or self-care (01) | LOC: WOUNDCARE 00:16 | DX: S97.81XA Crushing injury of right foot, initial encounter (principal); E78.5 Hyperlipidemia, unspecified; F17.210 Nicotine dependence, cigarettes, uncomplicated; X58.XXXA Exposure to other specified factors, initial encounter; Y93.89 Activity, other specified; Y92.89 Other specified places as the place of occurrence of the external cause; Y99.8 Other external cause status ==

== ENCOUNTER → 2018-05-28 | Outpatient (CLI) | payer OTHER | END | disposition home or self-care (01) | LOC: WOUNDCARE 03:13 | DX: S97.81XA Crushing injury of right foot, initial encounter (principal); E78.5 Hyperlipidemia, unspecified; F17.210 Nicotine dependence, cigarettes, uncomplicated; X58.XXXA Exposure to other specified factors, initial encounter; Y93.89 Activity, other specified; Y92.89 Other specified places as the place of occurrence of the external cause; Y99.8 Other external cause status ==

== ENCOUNTER → 2018-05-29 | Outpatient (CLI) | payer OTHER | END | disposition home or self-care (01) | LOC: WOUNDCARE 07:20 | DX: S97.81XA Crushing injury of right foot, initial encounter (principal); E78.5 Hyperlipidemia, unspecified; F17.210 Nicotine dependence, cigarettes, uncomplicated; X58.XXXA Exposure to other specified factors, initial encounter; Y93.89 Activity, other specified; Y92.89 Other specified places as the place of occurrence of the external cause; Y99.8 Other external cause status ==

== ENCOUNTER → 2018-05-30 | Outpatient (CLI) | payer OTHER | END | disposition home or self-care (01) | LOC: WOUNDCARE 15:00 | DX: S97.81XA Crushing injury of right foot, initial encounter (principal); E78.5 Hyperlipidemia, unspecified; F17.210 Nicotine dependence, cigarettes, uncomplicated; X58.XXXA Exposure to other specified factors, initial encounter; Y93.89 Activity, other specified; Y92.89 Other specified places as the place of occurrence of the external cause; Y99.8 Other external cause status ==

== ENCOUNTER → 2018-06-03 | Outpatient (CLI) | payer OTHER | END | disposition home or self-care (01) | LOC: WOUNDCARE 09:00 | DX: S97.81XA Crushing injury of right foot, initial encounter (principal); E78.5 Hyperlipidemia, unspecified; F17.210 Nicotine dependence, cigarettes, uncomplicated; X58.XXXA Exposure to other specified factors, initial encounter; Y93.89 Activity, other specified; Y92.89 Other specified places as the place of occurrence of the external cause; Y99.8 Other external cause status ==

== ENCOUNTER → 2018-06-05 | Outpatient (CLI) | payer OTHER | END | disposition home or self-care (01) | LOC: WOUNDCARE 15:03 | DX: S97.81XA Crushing injury of right foot, initial encounter (principal); E78.5 Hyperlipidemia, unspecified; F17.210 Nicotine dependence, cigarettes, uncomplicated; X58.XXXA Exposure to other specified factors, initial encounter; Y93.89 Activity, other specified; Y92.89 Other specified places as the place of occurrence of the external cause; Y99.8 Other external cause status ==

== ENCOUNTER → 2018-06-06 | Outpatient (CLI) | payer OTHER | END | disposition home or self-care (01) | LOC: WOUNDCARE 02:56 | DX: S97.81XA Crushing injury of right foot, initial encounter (principal); E78.5 Hyperlipidemia, unspecified; F17.200 Nicotine dependence, unspecified, uncomplicated; X58.XXXA Exposure to other specified factors, initial encounter; Y93.89 Activity, other specified; Y92.89 Other specified places as the place of occurrence of the external cause; Y99.8 Other external cause status ==

== ENCOUNTER → 2018-06-09 | Outpatient (CLI) | payer OTHER | LOC: WOUNDCARE 04:09 | DX: S97.81XA Crushing injury of right foot, initial encounter (principal); E78.5 Hyperlipidemia, unspecified; F17.210 Nicotine dependence, cigarettes, uncomplicated; X58.XXXA Exposure to other specified factors, initial encounter; Y93.89 Activity, other specified; Y92.89 Other specified places as the place of occurrence of the external cause; Y99.8 Other external cause status ==

== ENCOUNTER → 2018-06-11 | Outpatient (CLI) | payer OTHER | END | disposition home or self-care (01) | LOC: WOUNDCARE 08:30 | DX: S97.81XA Crushing injury of right foot, initial encounter (principal); E78.5 Hyperlipidemia, unspecified; F17.210 Nicotine dependence, cigarettes, uncomplicated; X58.XXXA Exposure to other specified factors, initial encounter; Y93.89 Activity, other specified; Y92.89 Other specified places as the place of occurrence of the external cause; Y99.8 Other external cause status ==

== ENCOUNTER → 2018-06-12 | Outpatient (CLI) | payer OTHER | END | disposition home or self-care (01) | LOC: WOUNDCARE 01:50 | DX: S97.81XA Crushing injury of right foot, initial encounter (principal); E78.5 Hyperlipidemia, unspecified; F17.210 Nicotine dependence, cigarettes, uncomplicated; X58.XXXA Exposure to other specified factors, initial encounter; Y93.89 Activity, other specified; Y92.89 Other specified places as the place of occurrence of the external cause; Y99.8 Other external cause status ==

== ENCOUNTER → 2018-06-13 | Outpatient (CLI) | payer OTHER | END | disposition home or self-care (01) | LOC: WOUNDCARE 04:23 | DX: S97.81XA Crushing injury of right foot, initial encounter (principal); E78.5 Hyperlipidemia, unspecified; F17.210 Nicotine dependence, cigarettes, uncomplicated; X58.XXXA Exposure to other specified factors, initial encounter; Y93.89 Activity, other specified; Y92.89 Other specified places as the place of occurrence of the external cause; Y99.8 Other external cause status ==

== ENCOUNTER → 2018-06-13 | Outpatient (CLI) | payer OTHER ==
--- NOTE | ~2018-06-13 | EKG ---
[place], [place] ELECTROCARDIOGRAM REPORT NAME: IQRA FRIEDMAN UNIT #: [id number] ROOM: DOCTOR: EPIPHANY DRAFT REPORT BIRTHDATE: [birth year] [facility] [place] Test Date: 2018-06-13 Test Time: 14:00:49 Pat Name: IQRA FRIEDMAN Department: Room: Gender: Hand Stapler: : 1990 Requested By: SANJU LEDEZMA Order Number: [id number] Reading MD: Dave Bar MD Measurements Intervals [place] Rate: 64 P: 28 RI: 144 QRS: 32 QRSD: 94 T: 10 QT: 395 QTc: 408 Interpretive Statements Sinus rhythm Electronically Signed On 06-14-2018 14:40:34 PDT by Dave Bar MD CM:EKGRPT:ELECTROCARDIOGRAM REPORT 1400 1440 SANJU LEDEZMA MD EPIPHANY DRAFT REPORT SANJU LEDEZMA MD
== END | disposition home or self-care (01) ==
LOC: RESCLI 04:27
DX: Z01.818 Encounter for other preprocedural examination (principal); M86.671 Other chronic osteomyelitis, right ankle and foot; Z78.9 Other specified health status; Z79.899 Other long term (current) drug therapy; Z88.8 Allergy status to other drugs, medicaments and biological substances

== ENCOUNTER → 2018-06-16 | Day surgery (SDC) | payer OTHER ==
[2018-06-13 16:21] LABS: BASO % 0.4 % (0.0-1.0); EOS # 0.3 10*3/uL (0.0-0.4); EOS % 2.6 % (1.0-4.0); HEMATOCRIT 48.1 % (42.0-52.0); HEMOGLOBIN 15.3 g/dl (14.0-18.0); LYMPH # 2.1 10*3/uL (1.3-4.4); LYMPH % 21.5 % (27.0-41.0); MEAN CELL VOLUME 87.6 fl (80.0-94.0); MEAN CORPUSCULAR HGB 27.9 pg (27.0-31.0); MEAN CORPUSCULAR HGB CONC 31.8 g/dl (33.0-37.0); MEAN PLATELET VOLUME 8.9 fl (9.6-12.3); MONO # 0.5 10*3/uL (0.1-1.0); MONO % 5.1 % (3.0-9.0); NEUT # 6.8 10*3/uL (2.3-7.9); NEUT % 69.6 % (47.0-73.0); PLATELET COUNT AUTOMATED 222 10*3/uL (130-400); RED BLOOD COUNT 5.49 10*6/uL (4.50-5.90); WHITE BLOOD COUNT 9.7 10*3/uL (4.8-10.8)
[2018-06-13 16:49] LABS: ACT PARTIAL THROMBO TIME 24.8 SECONDS (20.8-31.5)
[~2018-06-16] VITALS: Ht 187.9 cm; Wt 129.3 kg
--- NOTE | ~2018-06-16 | WRIGHTHP ---
[place], [place] PATIENT HISTORY AND PHYSICAL EXAM NAME: IQRA FRIEDMAN [facility] #: [id number] UNIT #: [id number] ROOM: DOCTOR: FRANK KAUR DPM BIRTHDATE: [birth year] DOS: 06/16/2018 LOWER EXTREMITY PHYSICAL EXAMINATION: VASCULAR: Palpable pedal pulses, 2/4 DP and PT bilaterally. Good cap refill time. NEUROLOGICAL: He has some decreased epicritic sensation from long-term damage and lack of use. DERMATOLOGIC: He has an open wound that measures 8 cm in the longest point and 4 cm in the widest point. The wound is all pink, healthy granular. No clinical signs of infection, drain, malodor, undermining or tunneling. There is pink, healthy granular tissue noted at the site of his mid foot, right with good muscle coverage. MUSCULOSKELETAL: The patient is post-gastroc recession TMT 1 arthrodesis. ORTHOPEDIC: There is no bone exposed at the TMT 1 arthrodesis from surgery earlier in the year. FRANK KAUR DPM CM:HISPHYS:PATIENT HISTORY AND PHYSICAL EXAMINATION 1248 [id number] FRANK KAUR DPM 07/17/18 0839 interface
--- NOTE | ~2018-06-16 | O ---
[place], [place] OPERATIVE NOTE NAME: IQRA FRIEDMAN REDWOOD LLCT #: [id number] UNIT #: [id number] ROOM: DOCTOR: FRANK KAUR DPM BIRTHDATE: [birth year] DOS: 06/16/2018 PREOPERATIVE DIAGNOSIS: Open wound right mid foot that measures 8 cm x 4 cm on the right foot. POSTOPERATIVE DIAGNOSIS: Open wound right mid foot that measures 8 cm x 4 cm on the right foot. PROCEDURES: 1. Split-thickness skin graft of right thigh. 2. Full thickness sharp excisional debridement of the wound. 3. Application of split-thickness skin graft from the right thigh to the right foot. DESCRIPTION OF THE PROCEDURE: The patient was seen in preop holding area and appropriate site marking was performed. He and his family member agreed. He was brought into the OR and placed on a well-padded OR table where anesthesia was achieved. Once the anesthesia was achieved, appropriate timeout was performed and everyone concurred. The patient's right thigh and right foot and lower leg were prepped and draped in usual sterile fashion. PROCEDURE #1: FULL THICKNESS SHARP EXCISIONAL DEBRIDEMENT OF THE RIGHT FOOT. Attention directed to mid foot where a full thickness sharp excisional debridement was performed using pickups, 10 blade, and rongeurs. All nonviable tissue was excised and removed in total from the wound. Deep tissue cultures were taken as precautionary and sent for Gram stain, aerobic, anaerobic, fungal and acid fast. The area was flushed with copious amounts of sterile saline, it bled nicely, was very pink and healthy looking. PROCEDURE #2: HARVESTING OF SKIN FROM THE RIGHT THIGH. At this time, attention was directed to the right thigh, mineral oil was applied to the right thigh. At this point in time, the dermatome was set on 12/1599 of an inch and it was a 2-inch blade that was used and at this time, a classic standard harvesting was performed using a dermatome. This was taken and measured appropriately. PROCEDURE #3: APPLICATION OF SPLIT-THICKNESS SKIN GRAFT FROM THE RIGHT THIGH TO THE RIGHT FOOT. At this time, the skin harvested from the right thigh was applied to the right foot wound and this was stapled down very adequately with good coverage. At this time, Adaptic, 4 x 4s, and mineral oil were applied and dry sterile dressing applied to the right foot and then a bolster dressing. This was sutured down to create stabilization of the skin graft and again bolstered the dressing with combination of Adaptic, 4 x 4s, Soo in a sterile compressive fashion. To the right thigh, topical foam was applied, 4 x 4s, Adaptic, OpSite and a compressive bandage applied to his right thigh. He tolerated the procedure and anesthesia well and left the OR with vascular intact. [place], [place] OPERATIVE NOTE NAME: IQRA FRIEDMAN UNIT #: [id number] ROOM: DOCTOR: FRANK KAUR DPM BIRTHDATE: [birth year] FRANK KAUR DPM CM:OPRECORD:OPERATIVE NOTE [id number] FRANK KAUR DPM 07/17/18 0841 interface
--- NOTE | ~2018-06-16 | WRIGHTHP ---
[place], [place] PATIENT HISTORY AND PHYSICAL EXAM NAME: IQRA FRIEDMAN [facility] #: [id number] UNIT #: [id number] ROOM: DOCTOR: FRANK KAUR DPM BIRTHDATE: [birth year] DOS: 06/16/2018 INDICATIONS: The patient is seen for complications of a wound on the medial aspect of his right foot. Recently, he has had an abductor hallucis muscle transfer. He has done very well postoperatively and he was scheduled for skin grafting earlier; however for whatever reason he has delayed the surgery. Today, he presents for surgery for split thickness skin graft from right thigh to right foot or harvesting of the graft from the thigh and applying to the foot to close the wound. The muscle transfer was taken very nicely and done very well. There was no exposed bone. He is aware of the pros, cons, risks, benefits, overcorrection, undercorrection, recurrence, worsening, limb loss, DVT, PE, RSD, CRPS, anything could happen, nothing should happen, he realized that, he has been through several surgeries and understands the consenting process. Also appropriate site-marking was performed on the right thigh and right foot today and he concurred with that. The perioperative management was discussed with the patient. He concurs with that as well. FRANK KAUR DPM CM:HISPHYS:PATIENT HISTORY AND PHYSICAL EXAMINATION [id number] FRANK KAUR DPM 06/17/18 0155 interface
[2018-06-16 09:15] VITALS: BP 114/75
[2018-06-16 10:36] VITALS: BP 123/49
[2018-06-16 10:51] VITALS: BP 133/83
[2018-06-16 11:06] VITALS: BP 130/89
[2018-06-16 11:21] VITALS: BP 112/72
[2018-06-16 11:36] VITALS: BP 110/65
[2018-06-19 15:07] LABS: ACID FAST SPEC PROCESSING Tissue Grinding (.)
== END | disposition home or self-care (01) ==
LOC: SDC 05-26 10:15 → EDSTATUS 06-13 12:30 → SDC 03:28
PROVIDERS: Podiatrist
DX: S91.301A Unspecified open wound, right foot, initial encounter (principal); F17.210 Nicotine dependence, cigarettes, uncomplicated; Z98.890 Other specified postprocedural states; Z79.899 Other long term (current) drug therapy; Z79.01 Long term (current) use of anticoagulants; X58.XXXA Exposure to other specified factors, initial encounter; Y93.89 Activity, other specified; Y92.89 Other specified places as the place of occurrence of the external cause; Y99.8 Other external cause status

== ENCOUNTER → 2018-10-10 | Outpatient (CLI) | payer OTHER | END | disposition home or self-care (01) | LOC: RESCLI 03:30 | DX: E66.01 Morbid (severe) obesity due to excess calories (principal); J20.9 Acute bronchitis, unspecified; M86.671 Other chronic osteomyelitis, right ankle and foot; F17.200 Nicotine dependence, unspecified, uncomplicated; Z79.899 Other long term (current) drug therapy; Z88.9 Allergy status to unspecified drugs, medicaments and biological substances ==

== ENCOUNTER 2018-12-22 18:56 | Emergency (ER) | payer OTHER ==
[~2018-12-22] VITALS: Wt 140.6 kg
[2018-12-22 18:57] VITALS: BP 130/69
[2018-12-22] MEDS ORDERED: TAMIFLU 75MG CA75 MG PO (20:44)
== END 2018-12-22 20:53 | disposition home or self-care (01) ==
LOC: ED 18:56
DX: J10.1 Influenza due to other identified influenza virus with other respiratory manifestations (principal); R11.10 Vomiting, unspecified; F17.200 Nicotine dependence, unspecified, uncomplicated; Z79.899 Other long term (current) drug therapy

== ENCOUNTER → 2019-01-22 | Outpatient (CLI) | payer OTHER ==
[~2019-01-22] MED LIST changes: +CYCLOBENZAPRINE5 M3 PO; +TAMIFLU 75MG CA75 MG PO
== END | disposition home or self-care (01) ==
LOC: RESCLI 02:54
DX: E66.01 Morbid (severe) obesity due to excess calories (principal); M79.671 Pain in right foot; F32.5 Major depressive disorder, single episode, in full remission; Z79.899 Other long term (current) drug therapy; Z88.8 Allergy status to other drugs, medicaments and biological substances

== ENCOUNTER 2019-01-28 21:05 | Emergency (ER) | payer OTHER ==
[~2019-01-28] VITALS: Ht 187.9 cm; Wt 127.0 kg
[~2019-01-28 21:05] MED LIST changes: -CYCLOBENZAPRINE5 M3 PO
[2019-01-28] MEDS ORDERED: CYCLOBENZAPRINE5 M3 PO (23:03)
== END 2019-01-28 23:25 | disposition home or self-care (01) ==
LOC: ED 21:05
DX: G44.209 Tension-type headache, unspecified, not intractable (principal); F17.200 Nicotine dependence, unspecified, uncomplicated; Z79.2 Long term (current) use of antibiotics; Z79.899 Other long term (current) drug therapy

== ENCOUNTER 2019-05-05 07:39 | Emergency (ER) | payer OTHER ==
[~2019-05-05] VITALS: Wt 138.3 kg
--- NOTE | ~2019-05-05 | EKG ---
[place], [place] ELECTROCARDIOGRAM REPORT NAME: IQRA FRIEDMAN UNIT #: [id number] ROOM: DOCTOR: EPIPHANY DRAFT REPORT BIRTHDATE: [birth year] [facility] Test Date: 2019-05-05 Test Time: 08:37:37 Pat Name: IQRA FRIEDMAN Department: Room: Gender: M [facility]: : 1990 Requested By: SEBASTIAN CASTILLO Order Number: [id number] Reading MD: Michael Bledsoe MD Measurements Intervals [place] Rate: 86 P: 33 NE: 139 QRS: 25 QRSD: 94 T: 6 QT: 360 QTc: 431 Interpretive Statements Sinus rhythm Compared to ECG 06/13/2018 14:00:49 No significant changes Electronically Signed On 05-06-2019 14:46:10 PDT by Michael Bledsoe MD CM:EKGRPT:ELECTROCARDIOGRAM REPORT [id number] SEBASTIAN FERNANDEZ DRAFT REPORT SEBASTIAN CASTILLO DO
[~2019-05-05 07:39] MED LIST changes: +CYCLOBENZAPRINE5 M3 PO
[2019-05-05 07:45] VITALS: BP 130/87
[2019-05-05 08:46] LABS: BASO # 0.1 10*3/uL (0.0-0.1); BASO % 0.6 % (0.0-1.0); EOS # 0.2 10*3/uL (0.0-0.4); EOS % 2.3 % (1.0-4.0); HEMATOCRIT 50.3 % (42.0-52.0); HEMOGLOBIN 16.6 g/dl (14.0-18.0); LYMPH % 24.7 % (27.0-41.0); MEAN CELL VOLUME 89.5 fl (80.0-94.0); MEAN CORPUSCULAR HGB 29.5 pg (27.0-31.0); MEAN PLATELET VOLUME 9.2 fl (9.6-12.3); MONO # 0.7 10*3/uL (0.1-1.0); MONO % 8.8 % (3.0-9.0); NEUT # 5.2 10*3/uL (2.3-7.9); NEUT % 62.7 % (47.0-73.0); PLATELET COUNT AUTOMATED 217 10*3/uL (130-400); RED BLOOD COUNT 5.62 10*6/uL (4.50-5.90); RED CELL DISTRI WIDTH 12.6 % (0-14.5); WHITE BLOOD COUNT 8.2 10*3/uL (4.8-10.8)
[2019-05-05 08:57] LABS: ACT PARTIAL THROMBO TIME 26.4 SECONDS (20.0-32.1); INTERNATIONAL NORM RATIO 0.9 (2.0-3.5)
[2019-05-05 09:03] LABS: CHLORIDE 104 mmol/L (98-107); POTASSIUM 4.1 mmol/L (3.5-5.1); SODIUM 138 mmol/L (136-145)
[2019-05-05 09:19] LABS: ALBUMIN 3.5 gm/dl (3.1-4.5); ALKALINE PHOSPHATASE 93 U/L (45-117); BUN 10 mg/dl (7-24); CREATININE 1.04 mg/dL (0.70-1.30); LIPASE 69 U/L (73-393); SGOT/AST 13 IU/L (3-35); SGPT/ALT 32 U/L (12-78)
[2019-05-05 09:23] LABS: TROPONIN I < 0.015 ng/ml (<0.045)
[2019-05-05] MEDS ORDERED: Motrin,Rufen800 MG PO (10:17)
[2019-05-05] MEDS ORDERED: CYCLOBENZAPRINE10 MG PO (10:17)
[2019-07-21] MEDS ORDERED: NORCO 10-325 T1 EACH PO (13:21)
== END 2019-05-05 10:27 | disposition home or self-care (01) ==
LOC: ED 07:39
PROVIDERS: Emergency Medicine
DX: S20.219A Contusion of unspecified front wall of thorax, initial encounter (principal); M54.2 Cervicalgia; M54.9 Dorsalgia, unspecified; E66.9 Obesity, unspecified; F17.200 Nicotine dependence, unspecified, uncomplicated; V67.5XXA Driver of heavy transport vehicle injured in collision with fixed or stationary object in traffic accident, initial encounter; Y93.89 Activity, other specified; Y92.413 State road as the place of occurrence of the external cause; Y99.8 Other external cause status

== ENCOUNTER 2019-08-23 23:20 | Emergency (ER) | payer OTHER ==
[~2019-08-23] VITALS: Ht 185.4 cm; Wt 133.8 kg
[~2019-08-23 23:20] MED LIST changes: +NORCO 10-325 T1 EACH PO
[2019-08-23 23:23] VITALS: BP 132/84
[2019-08-23] MEDS ORDERED: CEPHALEXIN500 M1 PO (23:54)
== END 2019-08-24 00:30 | disposition home or self-care (01) ==
LOC: ED 23:20
DX: T23.242A Burn of second degree of multiple left fingers (nail), including thumb, initial encounter (principal); F17.200 Nicotine dependence, unspecified, uncomplicated; X19.XXXA Contact with other heat and hot substances, initial encounter; Y93.G3 Activity, cooking and baking; Y92.89 Other specified places as the place of occurrence of the external cause; Y99.8 Other external cause status

== ENCOUNTER 2019-10-22 15:21 | Emergency (ER) | payer OTHER ==
[~2019-10-22] VITALS: Ht 187.9 cm; Wt 129.3 kg
[2019-10-22 15:22] VITALS: BP 146/86
[2019-10-22] MEDS ORDERED: PREDNISONE20 M1 PO (15:46)
[2019-10-22] MEDS ORDERED: PROVENTIL HFA6.7 GM INH (15:46)
[2019-10-22] MEDS ORDERED: NAPROSYN500 MG PO (15:46)
[2019-10-22] MEDS ORDERED: AVPAK AZITHROM250 MG PO (15:46)
== END 2019-10-22 16:10 | disposition home or self-care (01) ==
LOC: ED 15:21
DX: J20.9 Acute bronchitis, unspecified (principal); G89.29 Other chronic pain; M79.671 Pain in right foot; I10 Essential (primary) hypertension; F17.200 Nicotine dependence, unspecified, uncomplicated; Z79.2 Long term (current) use of antibiotics; Z79.899 Other long term (current) drug therapy

== ENCOUNTER 2019-12-26 00:12 | Emergency (ER) | payer OTHER ==
[~2019-12-26] VITALS: Ht 195.5 cm; Wt 129.3 kg
[~2019-12-26 00:12] MED LIST changes: +AVPAK AZITHROM250 MG PO; +PREDNISONE20 M1 PO; +PROVENTIL HFA6.7 GM INH
[2019-12-26 00:22] VITALS: BP 143/93
[2020-02-01] MEDS ORDERED: VIBRAMYCIN100 MG PO (23:01)
[2020-02-01] MEDS ORDERED: PROAIR HFA8.5 GM INH (23:01)
[2020-02-01] MEDS ORDERED: GOOD NEIGHBOR500 M2 PO (23:04)
== END 2019-12-26 02:03 | disposition home or self-care (01) ==
LOC: ED 00:12
DX: M79.671 Pain in right foot (principal); M79.661 Pain in right lower leg; R60.0 Localized edema; Z79.2 Long term (current) use of antibiotics; Z79.899 Other long term (current) drug therapy

== ENCOUNTER 2020-05-09 11:14 | Emergency (ER) | payer OTHER ==
[~2020-05-09 11:14] MED LIST changes: +GOOD NEIGHBOR500 M2 PO; +PROAIR HFA8.5 GM INH; +VIBRAMYCIN100 MG PO
[2020-05-09 11:48] VITALS: BP 123/81
[2020-05-09] MEDS ORDERED: VISTARIL25 MG PO (12:51)
== END 2020-05-09 12:56 | disposition home or self-care (01) ==
LOC: ED 11:14
DX: F41.9 Anxiety disorder, unspecified (principal); F17.200 Nicotine dependence, unspecified, uncomplicated; Z79.899 Other long term (current) drug therapy

== ENCOUNTER 2020-07-15 16:07 | Emergency (ER) | payer OTHER ==
[~2020-07-15 16:07] MED LIST changes: +VISTARIL25 MG PO
[2020-07-15 16:31] VITALS: BP 131/78
[2020-07-15 17:35] LABS: BASO # 0.1 10*3/uL (0.0-0.1); BASO % 0.6 % (0.0-1.0); EOS # 0.2 10*3/uL (0.0-0.4); EOS % 1.7 % (1.0-4.0); LYMPH # 2.1 10*3/uL (1.3-4.4); MEAN CELL VOLUME 88.5 fl (80.0-94.0); MEAN CORPUSCULAR HGB 28.8 pg (27.0-31.0); MEAN CORPUSCULAR HGB CONC 32.6 g/dl (33.0-37.0); MEAN PLATELET VOLUME 9.3 fl (9.6-12.3); MONO # 0.6 10*3/uL (0.1-1.0); MONO % 6.6 % (3.0-9.0); NEUT # 6.6 10*3/uL (2.3-7.9); NEUT % 68.6 % (47.0-73.0); PLATELET COUNT AUTOMATED 270 10*3/uL (130-400); RED BLOOD COUNT 5.65 10*6/uL (4.50-5.90); RED CELL DISTRI WIDTH 13.3 % (0-14.5); WHITE BLOOD COUNT 9.6 10*3/uL (4.8-10.8)
[2020-07-15 17:46] LABS: ACT PARTIAL THROMBO TIME 27.3 SECONDS (20.0-32.1)
[2020-07-15 17:50] LABS: ALBUMIN 3.9 gm/dl (3.1-4.5); ALKALINE PHOSPHATASE 108 U/L (45-117); BUN 11 mg/dl (7-24); CHLORIDE 107 mmol/L (98-107); CREATININE 1.06 mg/dL (0.70-1.30); LIPASE 71 U/L (73-393); POTASSIUM 3.8 mmol/L (3.5-5.1); SGOT/AST 15 IU/L (3-35); SGPT/ALT 34 U/L (12-78); SODIUM 138 mmol/L (136-145); TOTAL PROTEIN 7.9 gm/dL (6.4-8.2)
[2020-07-15 17:52] LABS: TROPONIN I < 0.015 ng/ml (<0.045)
== END 2020-07-15 19:03 | disposition home or self-care (01) ==
LOC: ED 16:07
PROVIDERS: Nurse Practitioner Family
DX: R55 Syncope and collapse (principal); E86.0 Dehydration; R42 Dizziness and giddiness; R51 Headache; R11.0 Nausea; R61 Generalized hyperhidrosis; H53.8 Other visual disturbances; M86.671 Other chronic osteomyelitis, right ankle and foot; F17.200 Nicotine dependence, unspecified, uncomplicated

== ENCOUNTER 2020-08-31 17:01 | Emergency (ER) | payer OTHER ==
[2020-08-31 17:15] VITALS: BP 152/92
[2020-08-31 17:58] LABS: BASO # 0.1 10*3/uL (0.0-0.1); BASO % 0.8 % (0.0-1.0); EOS # 0.3 10*3/uL (0.0-0.4); EOS % 2.8 % (1.0-4.0); HEMATOCRIT 49.7 % (42.0-52.0); LYMPH # 1.9 10*3/uL (1.3-4.4); LYMPH % 20.1 % (27.0-41.0); MEAN CELL VOLUME 88.8 fl (80.0-94.0); MEAN CORPUSCULAR HGB 28.8 pg (27.0-31.0); MEAN CORPUSCULAR HGB CONC 32.4 g/dl (33.0-37.0); MEAN PLATELET VOLUME 9.1 fl (9.6-12.3); MONO # 0.6 10*3/uL (0.1-1.0); MONO % 6.7 % (3.0-9.0); NEUT # 6.4 10*3/uL (2.3-7.9); PLATELET COUNT AUTOMATED 236 10*3/uL (130-400); RED CELL DISTRI WIDTH 12.8 % (0-14.5); WHITE BLOOD COUNT 9.3 10*3/uL (4.8-10.8)
[2020-08-31 18:14] LABS: ALBUMIN 3.4 gm/dl (3.1-4.5); ALKALINE PHOSPHATASE 89 U/L (45-117); BUN 6 mg/dl (7-24); CHLORIDE 108 mmol/L (98-107); CREATININE 0.87 mg/dL (0.70-1.30); LIPASE 79 U/L (73-393); SGOT/AST 12 IU/L (3-35); SGPT/ALT 29 U/L (12-78); SODIUM 138 mmol/L (136-145)
[2020-08-31] MEDS ORDERED: KEFLEX500 M1 PO (21:15)
[2020-08-31] MEDS ORDERED: OCUFLOX 0.3% 5 M5 ML OT (21:15)
== END 2020-08-31 21:30 | disposition home or self-care (01) ==
LOC: ED 17:01
PROVIDERS: Physician Assistant
DX: H60.91 Unspecified otitis externa, right ear (principal); F17.200 Nicotine dependence, unspecified, uncomplicated

== ENCOUNTER 2020-09-05 00:50 | Emergency (ER) | payer OTHER ==
[~2020-09-05] VITALS: Ht 187.9 cm; Wt 138.3 kg
[~2020-09-05 00:50] MED LIST changes: +KEFLEX500 M1 PO; +OCUFLOX 0.3% 5 M5 ML OT
[2020-09-05 01:02] VITALS: BP 151/103
[2020-09-05] MEDS ORDERED: AUGMENTIN 875875 MG PO (01:25)
== END 2020-09-05 02:00 | disposition home or self-care (01) ==
LOC: ED 00:50
DX: H66.91 Otitis media, unspecified, right ear (principal); Z79.899 Other long term (current) drug therapy

== ENCOUNTER → 2020-09-22 | Outpatient (CLI) | payer OTHER ==
[~2020-09-22] MED LIST changes: +AUGMENTIN 875875 MG PO
== END | disposition home or self-care (01) ==
LOC: COVID19 00:31
PROVIDERS: ATTEND Family Medicine
DX: Z20.828 Contact with and (suspected) exposure to other viral communicable diseases (principal)

== ENCOUNTER 2020-10-01 10:15 | Emergency (ER) | payer OTHER ==
[2020-10-01 10:21] VITALS: BP 128/80
[2020-10-01 11:03] LABS: BASO # 0.1 10*3/uL (0.0-0.1); BASO % 0.6 % (0.0-1.0); EOS # 0.2 10*3/uL (0.0-0.4); EOS % 2.3 % (1.0-4.0); HEMATOCRIT 51.3 % (42.0-52.0); LYMPH # 2.2 10*3/uL (1.3-4.4); LYMPH % 25.2 % (27.0-41.0); MEAN CELL VOLUME 89.1 fl (80.0-94.0); MEAN CORPUSCULAR HGB 28.5 pg (27.0-31.0); MEAN PLATELET VOLUME 9.2 fl (9.6-12.3); MONO # 0.7 10*3/uL (0.1-1.0); MONO % 7.5 % (3.0-9.0); NEUT # 5.6 10*3/uL (2.3-7.9); NEUT % 63.9 % (47.0-73.0); PLATELET COUNT AUTOMATED 235 10*3/uL (130-400); RED BLOOD COUNT 5.76 10*6/uL (4.50-5.90); RED CELL DISTRI WIDTH 12.9 % (0-14.5); WHITE BLOOD COUNT 8.8 10*3/uL (4.8-10.8)
[2020-10-01 11:14] LABS: ACT PARTIAL THROMBO TIME 28.5 SECONDS (20.0-32.1)
[2020-10-01 11:18] LABS: ALBUMIN 3.5 gm/dl (3.1-4.5); ALKALINE PHOSPHATASE 91 U/L (45-117); BUN 10 mg/dl (7-24); CHLORIDE 110 mmol/L (98-107); CREATININE 0.92 mg/dL (0.70-1.30); LDH 144 U/L (87-241); POTASSIUM 4.1 mmol/L (3.5-5.1); SGOT/AST 12 IU/L (3-35); SGPT/ALT 33 U/L (12-78); SODIUM 143 mmol/L (136-145); TOTAL PROTEIN 7.4 gm/dL (6.4-8.2)
[2020-10-01 11:20] LABS: TROPONIN I < 0.015 ng/ml (<0.045)
[2020-10-01] MEDS ORDERED: TYLENOL325 M1 PO (12:11)
[2020-10-01] MEDS ORDERED: ZOFRAN4 MG PO (12:11)
[2020-10-01] MEDS ORDERED: NAPROXEN250 MG PO (12:11)
== END 2020-10-01 12:15 | disposition home or self-care (01) ==
LOC: ED 10:15
PROVIDERS: Emergency Medicine
DX: J11.1 Influenza due to unidentified influenza virus with other respiratory manifestations (principal); F41.9 Anxiety disorder, unspecified; Z79.899 Other long term (current) drug therapy

== ENCOUNTER 2021-03-16 09:59 | Emergency (ER) | payer BC, OTHER ==
[~2021-03-16] VITALS: Ht 185.4 cm; Wt 142.9 kg
[~2021-03-16 09:59] MED LIST changes: +NAPROXEN250 MG PO; +TYLENOL325 M1 PO
[2021-03-16 10:10] VITALS: BP 142/82
[2021-03-16 11:06] LABS: BASO % 0.4 % (0.0-1.0); EOS # 0.2 10*3/uL (0.0-0.4); EOS % 2.1 % (1.0-4.0); LYMPH # 1.7 10*3/uL (1.3-4.4); LYMPH % 22.6 % (27.0-41.0); MEAN CELL VOLUME 90.9 fl (80.0-94.0); MEAN CORPUSCULAR HGB 29.2 pg (27.0-31.0); MEAN CORPUSCULAR HGB CONC 32.2 g/dl (33.0-37.0); MEAN PLATELET VOLUME 9.1 fl (9.6-12.3); MONO # 0.5 10*3/uL (0.1-1.0); NEUT # 5.2 10*3/uL (2.3-7.9); NEUT % 67.5 % (47.0-73.0); PLATELET COUNT AUTOMATED 225 10*3/uL (130-400); RED BLOOD COUNT 5.61 10*6/uL (4.50-5.90); RED CELL DISTRI WIDTH 13.2 % (0-14.5); WHITE BLOOD COUNT 7.7 10*3/uL (4.8-10.8)
[2021-03-16 11:22] LABS: ALBUMIN 3.7 gm/dl (3.1-4.5); ALKALINE PHOSPHATASE 93 U/L (45-117); BUN 13 mg/dl (7-24); CHLORIDE 107 mmol/L (98-107); CREATININE 1.16 mg/dL (0.70-1.30); SGOT/AST 10 IU/L (3-35); SGPT/ALT 30 U/L (12-78); SODIUM 141 mmol/L (136-145); TOTAL PROTEIN 7.3 gm/dL (6.4-8.2)
[2021-03-16] MEDS ORDERED: DOXYCYCLINE100 M3 PO (13:17)
[2021-03-16] MEDS ORDERED: PERCOCET 5-3251 EACH PO (13:17)
== END 2021-03-16 13:19 | disposition home or self-care (01) ==
LOC: ED 09:59
PROVIDERS: Emergency Medicine
DX: L03.115 Cellulitis of right lower limb (principal); Z79.899 Other long term (current) drug therapy

== ENCOUNTER 2021-05-14 21:34 | Emergency (ER) | payer OTHER ==
[~2021-05-14] VITALS: Ht 187.9 cm; Wt 129.3 kg
[~2021-05-14 21:34] MED LIST changes: +PERCOCET 5-3251 EACH PO
[2021-05-14 21:39] VITALS: BP 153/96
[2021-05-14] MEDS ORDERED: PENICILLIN VK500 MG PO (21:52)
== END 2021-05-14 22:14 | disposition home or self-care (01) ==
LOC: ED 21:34
DX: K02.9 Dental caries, unspecified (principal); K04.7 Periapical abscess without sinus; K08.89 Other specified disorders of teeth and supporting structures; Z79.899 Other long term (current) drug therapy

== ENCOUNTER 2021-09-14 11:27 | Emergency (ER) | payer OTHER ==
[2021-09-14 12:29] VITALS: BP 125/81
== END 2021-09-14 14:01 | disposition home or self-care (01) ==
LOC: ED 11:27
DX: M79.671 Pain in right foot (principal); E66.9 Obesity, unspecified; F17.200 Nicotine dependence, unspecified, uncomplicated; X50.1XXA Overexertion from prolonged static or awkward postures, initial encounter; Y93.89 Activity, other specified; Y92.89 Other specified places as the place of occurrence of the external cause; Y99.0 Civilian activity done for income or pay

== ENCOUNTER → 2021-10-04 | Outpatient (CLI) | payer OTHER ==
[~2021-10-04] MED LIST changes: +AMOXICILLIN875 MG PO
== END | disposition home or self-care (01) ==
LOC: COVID19 15:24
PROVIDERS: ATTEND Internal Medicine
DX: Z11.52 Encounter for screening for COVID-19 (principal)

== ENCOUNTER 2021-10-08 20:31 | Emergency (ER) | payer OTHER ==
[~2021-10-08] VITALS: Ht 187.9 cm; Wt 129.3 kg
[~2021-10-08 20:31] MED LIST changes: -AMOXICILLIN875 MG PO
[2021-10-08 20:45] VITALS: BP 138/92
[2021-10-08] MEDS ORDERED: AMOXICILLIN875 MG PO (21:12)
== END 2021-10-08 21:20 | disposition home or self-care (01) ==
LOC: ED 20:31
DX: K04.7 Periapical abscess without sinus (principal); F17.200 Nicotine dependence, unspecified, uncomplicated

== ENCOUNTER 2021-12-21 01:22 | Emergency (ER) | payer OTHER ==
[~2021-12-21] VITALS: Ht 187.9 cm; Wt 129.3 kg
[~2021-12-21 01:22] MED LIST changes: +AMOXICILLIN875 MG PO
[2021-12-21 01:30] VITALS: BP 135/88
[2021-12-21 02:20] LABS: BASO % 0.4 % (0.0-1.0); EOS % 0.5 % (1.0-4.0); HEMATOCRIT 48.2 % (42.0-52.0); LYMPH # 1.2 10*3/uL (1.3-4.4); LYMPH % 22.3 % (27.0-41.0); MEAN CELL VOLUME 88.6 fl (80.0-94.0); MEAN CORPUSCULAR HGB 29.2 pg (27.0-31.0); MEAN PLATELET VOLUME 9.2 fl (9.6-12.3); MONO # 0.7 10*3/uL (0.1-1.0); NEUT # 3.6 10*3/uL (2.3-7.9); NEUT % 64.4 % (47.0-73.0); PLATELET COUNT AUTOMATED 177 10*3/uL (130-400); RED BLOOD COUNT 5.44 10*6/uL (4.50-5.90); RED CELL DISTRI WIDTH 13.2 % (0-14.5); WHITE BLOOD COUNT 5.6 10*3/uL (4.8-10.8)
[2021-12-21 02:37] LABS: ALBUMIN 3.4 gm/dl (3.1-4.5); ALKALINE PHOSPHATASE 77 U/L (45-117); BUN 14 mg/dl (7-24); CHLORIDE 107 mmol/L (98-107); CREATININE 1.08 mg/dL (0.70-1.30); POTASSIUM 3.5 mmol/L (3.5-5.1); SGOT/AST 32 IU/L (3-35); SGPT/ALT 47 U/L (12-78); SODIUM 138 mmol/L (136-145)
== END 2021-12-21 04:01 | disposition home or self-care (01) ==
LOC: ED 01:22
PROVIDERS: Emergency Medicine
DX: B34.9 Viral infection, unspecified (principal); E66.9 Obesity, unspecified; F17.200 Nicotine dependence, unspecified, uncomplicated

== ENCOUNTER 2022-01-12 10:18 | Emergency (ER) | payer OTHER ==
[2022-01-12 10:22] VITALS: BP 142/90
[2022-01-12] MEDS ORDERED: CYCLOBENZAPRINE10 MG PO (13:52)
[2022-01-12] MEDS ORDERED: Motrin,Rufen800 MG PO (13:52)
== END 2022-01-12 13:54 | disposition home or self-care (01) ==
LOC: ED 10:18
DX: S30.0XXA Contusion of lower back and pelvis, initial encounter (principal); S09.90XA Unspecified injury of head, initial encounter; F17.200 Nicotine dependence, unspecified, uncomplicated; W00.0XXA Fall on same level due to ice and snow, initial encounter; Y93.89 Activity, other specified; Y92.89 Other specified places as the place of occurrence of the external cause; Y99.8 Other external cause status

== ENCOUNTER 2022-02-13 14:08 | Emergency (ER) | payer OTHER ==
[2022-02-13 14:14] VITALS: BP 152/78
[2022-02-13] MEDS ORDERED: MEDROL DOSEPAK4 MG PO (14:32)
[2022-02-13] MEDS ORDERED: PERCOCET 10-321 EACH PO (14:32)
== END 2022-02-13 14:37 | disposition home or self-care (01) ==
LOC: ED 14:08
DX: M79.671 Pain in right foot (principal); F17.200 Nicotine dependence, unspecified, uncomplicated

== ENCOUNTER 2022-07-14 21:58 | Emergency (ER) | payer OTHER ==
[~2022-07-14] VITALS: Ht 187.9 cm; Wt 129.3 kg
[~2022-07-14 21:58] MED LIST changes: +PERCOCET 10-321 EACH PO
[2022-07-14 22:13] VITALS: BP 147/88
[2022-07-14 23:13] LABS: BASO # 0.1 10*3/uL (0.0-0.1); BASO % 0.8 % (0.0-1.0); EOS # 0.5 10*3/uL (0.0-0.4); EOS % 4.7 % (1.0-4.0); HEMATOCRIT 47.1 % (42.0-52.0); LYMPH # 2.7 10*3/uL (1.3-4.4); MEAN CELL VOLUME 87.7 fl (80.0-94.0); MEAN CORPUSCULAR HGB 30.2 pg (27.0-31.0); MEAN CORPUSCULAR HGB CONC 34.4 g/dl (33.0-37.0); MEAN PLATELET VOLUME 9.1 fl (9.6-12.3); MONO # 0.8 10*3/uL (0.1-1.0); NEUT # 5.6 10*3/uL (2.3-7.9); NEUT % 58.1 % (47.0-73.0); PLATELET COUNT AUTOMATED 216 10*3/uL (130-400); RED BLOOD COUNT 5.37 10*6/uL (4.50-5.90); RED CELL DISTRI WIDTH 12.7 % (0-14.5); WHITE BLOOD COUNT 9.6 10*3/uL (4.8-10.8)
[2022-07-14 23:29] LABS: ALKALINE PHOSPHATASE 88 U/L (45-117); BUN 13 mg/dl (7-24); CHLORIDE 107 mmol/L (98-107); CREATININE 1.06 mg/dL (0.70-1.30); POTASSIUM 3.8 mmol/L (3.5-5.1); SGOT/AST 20 IU/L (3-35); SGPT/ALT 33 U/L (12-78); SODIUM 142 mmol/L (136-145); TOTAL PROTEIN 6.8 gm/dL (6.4-8.2)
[2022-07-14] MEDS ORDERED: CEPHALEXIN500 M1 PO (23:36)
== END 2022-07-15 00:01 | disposition home or self-care (01) ==
LOC: ED 21:58
PROVIDERS: Physician Assistant
DX: M13.871 Other specified arthritis, right ankle and foot (principal); Z87.891 Personal history of nicotine dependence

== ENCOUNTER 2022-08-07 21:34 | Emergency (ER) | payer OTHER ==
[~2022-08-07] VITALS: Ht 185.4 cm; Wt 129.3 kg
[2022-08-07 22:03] VITALS: BP 120/87
[2022-08-07] MEDS ORDERED: SEPTDS PO (22:16)
[2022-08-07] MEDS ORDERED: IBUPROFEN600 MG PO (22:16)
== END 2022-08-08 01:45 | disposition home or self-care (01) ==
LOC: ED 21:34
DX: S60.221A Contusion of right hand, initial encounter (principal); Z87.891 Personal history of nicotine dependence; W22.8XXA Striking against or struck by other objects, initial encounter; Y93.89 Activity, other specified; Y92.89 Other specified places as the place of occurrence of the external cause; Y99.8 Other external cause status

== ENCOUNTER 2023-01-08 14:50 | Emergency (ER) | payer OTHER ==
[~2023-01-08] VITALS: Wt 129.3 kg
[~2023-01-08 14:50] MED LIST changes: +IBUPROFEN600 MG PO
[2023-01-08 15:03] VITALS: BP 160/93
[2023-01-08] MEDS ORDERED: AMOXICILLIN500 M2 PO (16:40)
[2023-01-08] MEDS ORDERED: OXYCODONE HCL5 M1 PO (16:42)
[2023-01-08] MEDS ORDERED: AMOX-CLAV 875-1 EACH PO (16:47)
[2023-01-08] MEDS ORDERED: Percocet 325 MG1 TAB PO (16:50)
== END 2023-01-08 16:54 | disposition home or self-care (01) ==
LOC: ED 14:50
DX: K04.7 Periapical abscess without sinus (principal); F17.200 Nicotine dependence, unspecified, uncomplicated

== ENCOUNTER 2023-01-12 21:50 | Emergency (ER) | payer OTHER ==
[~2023-01-12] VITALS: Wt 155.7 kg
[~2023-01-12 21:50] MED LIST changes: +AMOX-CLAV 875-1 EACH PO; +OXYCODONE HCL5 M1 PO; +Percocet 325 MG1 TAB PO
[2023-01-12 22:27] VITALS: BP 142/86
[2023-01-12 22:57] LABS: BASO # 0.1 10*3/uL (0.0-0.1); BASO % 0.7 % (0.0-1.0); EOS # 0.2 10*3/uL (0.0-0.4); EOS % 2.1 % (1.0-4.0); HEMATOCRIT 47.7 % (42.0-52.0); LYMPH # 3.5 10*3/uL (1.3-4.4); LYMPH % 31.3 % (27.0-41.0); MEAN CELL VOLUME 88.3 fl (80.0-94.0); MEAN CORPUSCULAR HGB 29.1 pg (27.0-31.0); MEAN CORPUSCULAR HGB CONC 32.9 g/dl (33.0-37.0); MONO # 0.8 10*3/uL (0.1-1.0); MONO % 7.4 % (3.0-9.0); NEUT # 6.4 10*3/uL (2.3-7.9); PLATELET COUNT AUTOMATED 265 10*3/uL (130-400); RED CELL DISTRI WIDTH 12.3 % (0-14.5); WHITE BLOOD COUNT 11.1 10*3/uL (4.8-10.8)
== END 2023-01-12 23:54 | disposition home or self-care (01) ==
LOC: ED 21:50
PROVIDERS: Physician Assistant
DX: L50.9 Urticaria, unspecified (principal); G89.29 Other chronic pain; M76.71 Peroneal tendinitis, right leg; M79.671 Pain in right foot; T36.0X5A Adverse effect of penicillins, initial encounter; F17.200 Nicotine dependence, unspecified, uncomplicated; Z98.890 Other specified postprocedural states; Y92.89 Other specified places as the place of occurrence of the external cause

== ENCOUNTER 2023-02-20 09:50 | Emergency (ER) | payer OTHER ==
[~2023-02-20] VITALS: Wt 129.3 kg
[2023-02-20 10:23] VITALS: BP 159/93
[2023-02-20] MEDS ORDERED: IBUPROFEN600 MG PO (15:09)
== END 2023-02-20 15:28 | disposition home or self-care (01) ==
LOC: ED 09:50
DX: R51.9 Headache, unspecified (principal); R05.9 Cough, unspecified; F17.200 Nicotine dependence, unspecified, uncomplicated; Z98.890 Other specified postprocedural states

== ENCOUNTER 2023-04-06 21:14 | Emergency (ER) | payer OTHER ==
[~2023-04-06] VITALS: Ht 185.4 cm; Wt 152.0 kg
[2023-04-06 21:14] VITALS: BP 142/90
[2023-04-06 22:23] LABS: BASO # 0.1 10*3/uL (0.0-0.1); BASO % 0.7 % (0.0-1.0); EOS # 0.2 10*3/uL (0.0-0.4); HEMATOCRIT 47.9 % (42.0-52.0); LYMPH # 2.3 10*3/uL (1.3-4.4); LYMPH % 30.8 % (27.0-41.0); MEAN CORPUSCULAR HGB 29.4 pg (27.0-31.0); MEAN CORPUSCULAR HGB CONC 34.2 g/dl (33.0-37.0); MEAN PLATELET VOLUME 9.8 fl (9.6-12.3); MONO # 0.6 10*3/uL (0.1-1.0); MONO % 8.1 % (3.0-9.0); NEUT # 4.2 10*3/uL (2.3-7.9); NEUT % 56.9 % (47.0-73.0); PLATELET COUNT AUTOMATED 193 10*3/uL (130-400); RED BLOOD COUNT 5.57 10*6/uL (4.50-5.90); RED CELL DISTRI WIDTH 12.8 % (0-14.5); WHITE BLOOD COUNT 7.4 10*3/uL (4.8-10.8)
[2023-04-06 22:57] LABS: ALKALINE PHOSPHATASE 117 U/L (46-116); BUN 11 mg/dl (9-23); CHLORIDE 94 mmol/L (98-107); POTASSIUM 4.4 mmol/L (3.4-5.1); SGPT/ALT 25 U/L (10-49)
== END 2023-04-07 02:28 | disposition home or self-care (01) ==
LOC: ED 21:14
PROVIDERS: Internal Medicine
DX: E11.65 Type 2 diabetes mellitus with hyperglycemia (principal); F17.200 Nicotine dependence, unspecified, uncomplicated

== ENCOUNTER 2023-05-30 17:56 | Emergency (ER) | payer OTHER ==
[~2023-05-30] VITALS: Ht 182.8 cm; Wt 154.2 kg
[2023-05-30 18:09] VITALS: BP 164/99
[2023-05-30 18:39] LABS: BASO # 0.1 10*3/uL (0.0-0.1); BASO % 0.4 % (0.0-1.0); EOS % 0.2 % (1.0-4.0); HEMATOCRIT 48.1 % (42.0-52.0); LYMPH # 2.7 10*3/uL (1.3-4.4); LYMPH % 19.3 % (27.0-41.0); MEAN CELL VOLUME 87.6 fl (80.0-94.0); MEAN CORPUSCULAR HGB 29.1 pg (27.0-31.0); MEAN CORPUSCULAR HGB CONC 33.3 g/dl (33.0-37.0); MEAN PLATELET VOLUME 8.8 fl (9.6-12.3); MONO # 0.7 10*3/uL (0.1-1.0); NEUT # 10.4 10*3/uL (2.3-7.9); NEUT % 74.5 % (47.0-73.0); PLATELET COUNT AUTOMATED 293 10*3/uL (130-400); RED BLOOD COUNT 5.49 10*6/uL (4.50-5.90); RED CELL DISTRI WIDTH 12.2 % (0-14.5); WHITE BLOOD COUNT 13.9 10*3/uL (4.8-10.8)
[2023-05-30 18:49] LABS: ACT PARTIAL THROMBO TIME 26.8 SECONDS (20.0-32.1)
[2023-05-30 19:01] LABS: ALKALINE PHOSPHATASE 92 U/L (46-116); BUN 6 mg/dl (9-23); CHLORIDE 103 mmol/L (98-107); LIPASE 32 U/L (12-53); POTASSIUM 3.5 mmol/L (3.4-5.1); SGPT/ALT 27 U/L (10-49); TOTAL PROTEIN 7.3 gm/dL (6.0-8.0)
== END 2023-05-30 19:31 | disposition home or self-care (01) ==
LOC: ED 17:56
PROVIDERS: Internal Medicine
DX: K04.7 Periapical abscess without sinus (principal); A41.9 Sepsis, unspecified organism; R79.82 Elevated C-reactive protein (CRP); R73.09 Other abnormal glucose; F17.200 Nicotine dependence, unspecified, uncomplicated

== ENCOUNTER 2023-09-18 12:16 | Emergency (ER) | payer OTHER ==
[~2023-09-18] VITALS: Ht 187.9 cm; Wt 142.9 kg
[2023-09-18 12:22] VITALS: BP 154/94
[2023-09-18 14:51] LABS: BASO # 0.1 10*3/uL (0.0-0.1); BASO % 0.5 % (0.0-1.0); EOS # 0.2 10*3/uL (0.0-0.4); EOS % 2.4 % (1.0-4.0); HEMATOCRIT 50.2 % (42.0-52.0); LYMPH # 2.2 10*3/uL (1.3-4.4); LYMPH % 23.9 % (27.0-41.0); MEAN CELL VOLUME 89.8 fl (80.0-94.0); MEAN CORPUSCULAR HGB 29.7 pg (27.0-31.0); MEAN CORPUSCULAR HGB CONC 33.1 g/dl (33.0-37.0); MEAN PLATELET VOLUME 8.8 fl (9.6-12.3); MONO # 0.6 10*3/uL (0.1-1.0); MONO % 6.2 % (3.0-9.0); NEUT # 6.2 10*3/uL (2.3-7.9); NEUT % 66.5 % (47.0-73.0); PLATELET COUNT AUTOMATED 230 10*3/uL (130-400); RED BLOOD COUNT 5.59 10*6/uL (4.50-5.90); RED CELL DISTRI WIDTH 12.7 % (0-14.5); WHITE BLOOD COUNT 9.3 10*3/uL (4.8-10.8)
[2023-09-18 15:14] LABS: ALKALINE PHOSPHATASE 92 U/L (46-116); BUN 11 mg/dl (9-23); CHLORIDE 103 mmol/L (98-107); POTASSIUM 4.2 mmol/L (3.4-5.1); SGPT/ALT 24 U/L (10-49); TOTAL PROTEIN 7.3 gm/dL (6.0-8.0)
== END 2023-09-18 15:54 | disposition home or self-care (01) ==
LOC: ED 12:16
PROVIDERS: Nurse Practitioner
DX: M79.671 Pain in right foot (principal); F17.200 Nicotine dependence, unspecified, uncomplicated

== ENCOUNTER 2023-11-15 01:37 | Emergency (ER) | payer SELFPAY ==
[~2023-11-15] VITALS: Ht 185.4 cm; Wt 158.8 kg
[2023-11-15 01:50] VITALS: BP 129/90
[2023-11-15 02:26] LABS: BASO % 0.8 % (0.0-1.0); EOS # 0.2 10*3/uL (0.0-0.4); EOS % 4.1 % (1.0-4.0); LYMPH % 20.3 % (27.0-41.0); MEAN CELL VOLUME 87.9 fl (80.0-94.0); MEAN CORPUSCULAR HGB 28.4 pg (27.0-31.0); MEAN CORPUSCULAR HGB CONC 32.4 g/dl (33.0-37.0); MEAN PLATELET VOLUME 8.9 fl (9.6-12.3); MONO # 0.5 10*3/uL (0.1-1.0); MONO % 10.1 % (3.0-9.0); NEUT # 3.1 10*3/uL (2.3-7.9); NEUT % 64.1 % (47.0-73.0); PLATELET COUNT AUTOMATED 145 10*3/uL (130-400); RED CELL DISTRI WIDTH 12.2 % (0-14.5); WHITE BLOOD COUNT 4.8 10*3/uL (4.8-10.8)
[2023-11-15 02:54] LABS: ALKALINE PHOSPHATASE 95 U/L (46-116); BUN 8 mg/dl (9-23); CHLORIDE 99 mmol/L (98-107); LIPASE 35 U/L (12-53); SGPT/ALT 31 U/L (5-49); TOTAL PROTEIN 6.9 gm/dL (6.0-8.0)
== END 2023-11-15 03:57 | disposition left against medical advice (07) ==
LOC: ED 01:37
PROVIDERS: Internal Medicine
DX: R73.9 Hyperglycemia, unspecified (principal); K76.0 Fatty (change of) liver, not elsewhere classified; R10.9 Unspecified abdominal pain; R11.0 Nausea; Z98.890 Other specified postprocedural states; F17.200 Nicotine dependence, unspecified, uncomplicated

== ENCOUNTER 2024-02-16 22:12 | Emergency (ER) | payer OTHER ==
[~2024-02-16] VITALS: Ht 185.4 cm; Wt 148.8 kg
[2024-02-16 22:21] VITALS: BP 136/92
[2024-02-16] MEDS ORDERED: HYDROmorphONE Hydrochloride 0.5 MG/0.5 ML SYRINGE IV ONE (22:45)
[2024-02-16] MEDS ORDERED: Ondansetron Hydrochloride 4 MG/2 ML VIAL IV ONE (22:45)
[2024-02-16 22:58] LABS: BASO # 0.1 10*3/uL (0.0-0.1); BASO % 0.6 % (0.0-1.0); EOS # 0.3 10*3/uL (0.0-0.4); EOS % 2.4 % (1.0-4.0); HEMATOCRIT 48.6 % (42.0-52.0); LYMPH # 2.8 10*3/uL (1.3-4.4); LYMPH % 26.8 % (27.0-41.0); MEAN CELL VOLUME 88.2 fl (80.0-94.0); MEAN CORPUSCULAR HGB 28.5 pg (27.0-31.0); MEAN CORPUSCULAR HGB CONC 32.3 g/dl (33.0-37.0); MEAN PLATELET VOLUME 9.3 fl (9.6-12.3); MONO # 0.5 10*3/uL (0.1-1.0); MONO % 4.9 % (3.0-9.0); NEUT # 6.7 10*3/uL (2.3-7.9); NEUT % 64.9 % (47.0-73.0); PLATELET COUNT AUTOMATED 211 10*3/uL (130-400); RED BLOOD COUNT 5.51 10*6/uL (4.50-5.90); RED CELL DISTRI WIDTH 12.4 % (0-14.5); WHITE BLOOD COUNT 10.4 10*3/uL (4.8-10.8)
[2024-02-16 23:13] LABS: BILIRUBIN Negative (Negative); BLOOD Negative (Negative); CLARITY Clear (Clear); COLOR Yellow (Yellow); GLUCOSE 3+ (Negative); KETONE Negative (Negative); LEUKO ESTERASE Negative (Negative); NITRITE Negative (Negative); SPECIFIC GRAVITY >= 1.030 (1.001-1.030); UROBILINOGEN 0.2 E.U./dl (0.0-1.0)
[2024-02-16 23:31] LABS: ALKALINE PHOSPHATASE 103 U/L (46-116); BUN 8 mg/dl (9-23); CHLORIDE 98 mmol/L (98-107); POTASSIUM 3.9 mmol/L (3.4-5.1); SGPT/ALT 18 U/L (5-49); TOTAL PROTEIN 6.8 gm/dL (6.0-8.0)
[2024-02-16] MEDS ORDERED: SODIUM CHLORIDE 0.9% 1,000 ML IV ONE (23:40)
[2024-02-16 23:50] LABS: RBC 0-2 rbc/hpf (0-2); WBC 0-2 wbc/hpf (0-5)
[2024-02-17] MEDS ORDERED: HYDROmorphONE Hydrochloride 0.5 MG/0.5 ML SYRINGE IV ONE (03:05)
== END 2024-02-17 04:32 | disposition home or self-care (01) ==
LOC: ED 22:12
PROVIDERS: Emergency Medicine
DX: R10.32 Left lower quadrant pain (principal); E11.65 Type 2 diabetes mellitus with hyperglycemia; R11.0 Nausea; F41.9 Anxiety disorder, unspecified; F17.200 Nicotine dependence, unspecified, uncomplicated; E78.5 Hyperlipidemia, unspecified; E66.9 Obesity, unspecified; Z68.30 Body mass index [BMI] 30.0-30.9, adult

== ENCOUNTER 2024-02-20 19:03 | Emergency (ER) | payer OTHER ==
[~2024-02-20] VITALS: Ht 185.4 cm; Wt 142.9 kg
[2024-02-20 19:30] VITALS: BP 130/80
[2024-02-20] MEDS ORDERED: Ondansetron Hydrochloride 4 MG/2 ML VIAL IV ONE (20:10)
[2024-02-20] MEDS ORDERED: SODIUM CHLORIDE 0.9% 1,000 ML IV ONE (20:10)
[2024-02-20] MEDS ORDERED: MORPHINE Sulfate 2 MG/ML SYR IV ONE (20:10)
[2024-02-20 20:21] LABS: BASO # 0.1 10*3/uL (0.0-0.1); BASO % 0.5 % (0.0-1.0); EOS # 0.2 10*3/uL (0.0-0.4); EOS % 2.4 % (1.0-4.0); HEMATOCRIT 47.8 % (42.0-52.0); LYMPH # 2.4 10*3/uL (1.3-4.4); LYMPH % 24.4 % (27.0-41.0); MEAN CELL VOLUME 88.7 fl (80.0-94.0); MEAN CORPUSCULAR HGB 28.2 pg (27.0-31.0); MEAN CORPUSCULAR HGB CONC 31.8 g/dl (33.0-37.0); MEAN PLATELET VOLUME 9.2 fl (9.6-12.3); MONO # 0.6 10*3/uL (0.1-1.0); MONO % 5.7 % (3.0-9.0); NEUT # 6.4 10*3/uL (2.3-7.9); NEUT % 66.7 % (47.0-73.0); PLATELET COUNT AUTOMATED 211 10*3/uL (130-400); RED BLOOD COUNT 5.39 10*6/uL (4.50-5.90); RED CELL DISTRI WIDTH 12.5 % (0-14.5); WHITE BLOOD COUNT 9.7 10*3/uL (4.8-10.8)
[2024-02-20 20:42] LABS: ALKALINE PHOSPHATASE 95 U/L (46-116); BUN 6 mg/dl (9-23); CHLORIDE 102 mmol/L (98-107); LIPASE 44 U/L (12-53); POTASSIUM 3.9 mmol/L (3.4-5.1); SGPT/ALT 18 U/L (5-49); TOTAL PROTEIN 6.8 gm/dL (6.0-8.0)
[2024-02-20] MEDS ORDERED: IOHEXOL 300 MG/ML 100 ML VIAL IV ONE (21:00)
[2024-02-20 21:08] LABS: BILIRUBIN Negative (Negative); BLOOD Negative (Negative); CLARITY Clear (Clear); COLOR Yellow (Yellow); GLUCOSE 3+ (Negative); KETONE Negative (Negative); LEUKO ESTERASE Negative (Negative); NITRITE Negative (Negative); PH 5.5 (4.5-8.0); SPECIFIC GRAVITY >= 1.030 (1.001-1.030); UROBILINOGEN 0.2 E.U./dl (0.0-1.0)
[2024-02-20 21:29] LABS: EPITHELIAL CELLS 0-2
[2024-02-20] MEDS ORDERED: INSULIN REGULAR, HUMAN 1 UNIT/0.01 ML IV ONE (22:40)
[2024-02-20] MEDS ORDERED: CYCLOBENZAPRINE5 M3 PO (22:49)
[2024-02-20] MEDS ORDERED: ONDANSETRON4 MG SL (22:49)
== END 2024-02-20 23:12 | disposition home or self-care (01) ==
LOC: ED 19:03
PROVIDERS: Nurse Practitioner
DX: R10.32 Left lower quadrant pain (principal); R11.2 Nausea with vomiting, unspecified; F17.200 Nicotine dependence, unspecified, uncomplicated

== ENCOUNTER 2024-04-14 00:07 | Emergency (ER) | payer OTHER ==
[~2024-04-14] VITALS: Ht 187.9 cm; Wt 142.9 kg
[~2024-04-14 00:07] MED LIST changes: +ONDANSETRON4 MG SL
[2024-04-14 00:26] VITALS: BP 134/91
[2024-04-14] MEDS ORDERED: GLIMEPIRIDE4 M1 PO (00:27)
[2024-04-14] MEDS ORDERED: METFORMIN HYDR500 MG PO (00:27)
== END 2024-04-14 02:56 | disposition home or self-care (01) ==
LOC: ED 00:07
DX: S66.911A Strain of unspecified muscle, fascia and tendon at wrist and hand level, right hand, initial encounter (principal); E11.9 Type 2 diabetes mellitus without complications; F41.9 Anxiety disorder, unspecified; E78.5 Hyperlipidemia, unspecified; E66.9 Obesity, unspecified; F17.200 Nicotine dependence, unspecified, uncomplicated; Z79.899 Other long term (current) drug therapy; W01.0XXA Fall on same level from slipping, tripping and stumbling without subsequent striking against object, initial encounter; Y93.89 Activity, other specified; Y92.89 Other specified places as the place of occurrence of the external cause; Y99.8 Other external cause status

== ENCOUNTER 2024-08-03 23:16 | Emergency (ER) | payer OTHER ==
[~2024-08-03] VITALS: Ht 177.8 cm; Wt 140.4 kg
[~2024-08-03 23:16] MED LIST changes: +GLIMEPIRIDE4 M1 PO; +METFORMIN HYDR500 MG PO
[2024-08-03 23:47] LABS: BASO # 0.1 10*3/uL (0.0-0.1); BASO % 0.7 % (0.0-1.0); EOS # 0.2 10*3/uL (0.0-0.4); EOS % 2.3 % (1.0-4.0); HEMATOCRIT 46.2 % (42.0-52.0); LYMPH # 2.2 10*3/uL (1.3-4.4); LYMPH % 24.9 % (27.0-41.0); MEAN CELL VOLUME 88.2 fl (80.0-94.0); MEAN CORPUSCULAR HGB 29.2 pg (27.0-31.0); MEAN CORPUSCULAR HGB CONC 33.1 g/dl (33.0-37.0); MEAN PLATELET VOLUME 9.6 fl (9.6-12.3); MONO # 0.6 10*3/uL (0.1-1.0); MONO % 6.6 % (3.0-9.0); NEUT # 5.6 10*3/uL (2.3-7.9); NEUT % 64.8 % (47.0-73.0); PLATELET COUNT AUTOMATED 246 10*3/uL (130-400); RED BLOOD COUNT 5.24 10*6/uL (4.50-5.90); RED CELL DISTRI WIDTH 12.2 % (0-14.5); WHITE BLOOD COUNT 8.7 10*3/uL (4.8-10.8)
[2024-08-04 00:24] LABS: ALKALINE PHOSPHATASE 118 U/L (46-116); BUN 5 mg/dl (9-23); CHLORIDE 94 mmol/L (98-107); SGPT/ALT 16 U/L (5-49); TOTAL PROTEIN 6.8 gm/dL (6.0-8.0)
[2024-08-04] MEDS ORDERED: SODIUM CHLORIDE 0.9% 1,000 ML IV ONE ×2 (00:45)
[2024-08-04] MEDS ORDERED: INSULIN REGULAR, HUMAN 1 UNIT/0.01 ML IV ONE ×3 (00:45)
[2024-08-04 01:33] VITALS: BP 117/78
[2024-08-04] MEDS ORDERED: Ketorolac Tromethamine 30 MG/ML VIAL IV ONE (05:00)
== END 2024-08-04 05:08 | disposition home or self-care (01) ==
LOC: ED 23:16
PROVIDERS: Internal Medicine
DX: E11.649 Type 2 diabetes mellitus with hypoglycemia without coma (principal); R00.2 Palpitations; R07.89 Other chest pain; F17.200 Nicotine dependence, unspecified, uncomplicated

== ENCOUNTER 2024-10-13 20:18 | Emergency (ER) | payer OTHER ==
[~2024-10-13] VITALS: Ht 187.9 cm; Wt 158.8 kg
[2024-10-13 20:29] VITALS: BP 145/84
[2024-10-13] MEDS ORDERED: Ketorolac Tromethamine 60 MG/2 ML VIAL IM ONE (21:45)
[2024-10-13] MEDS ORDERED: NAPROSYN500 MG PO (21:52)
== END 2024-10-13 22:11 | disposition home or self-care (01) ==
LOC: ED 20:18
DX: S93.401A Sprain of unspecified ligament of right ankle, initial encounter (principal); S93.601A Unspecified sprain of right foot, initial encounter; F17.200 Nicotine dependence, unspecified, uncomplicated; W10.8XXA Fall (on) (from) other stairs and steps, initial encounter; Y93.89 Activity, other specified; Y92.89 Other specified places as the place of occurrence of the external cause; Y99.8 Other external cause status

== ENCOUNTER 2025-03-21 23:51 | Emergency (ER) | payer OTHER ==
[~2025-03-21] VITALS: Ht 187.9 cm; Wt 129.3 kg
[2025-03-21 23:59] VITALS: BP 136/86
[2025-03-22] MEDS ORDERED: Doxycycline Hyclate 100 MG CAPSULE PO ONE (00:10)
[2025-03-22] MEDS ORDERED: methylPREDNISolone sod succ 125 MG VIAL IM ONE (00:10)
[2025-03-22] MEDS ORDERED: VIBRAMYCIN100 MG PO (00:29)
== END 2025-03-22 00:35 | disposition home or self-care (01) ==
LOC: ED 23:51
DX: R59.0 Localized enlarged lymph nodes (principal); R23.4 Changes in skin texture; F17.200 Nicotine dependence, unspecified, uncomplicated

== ENCOUNTER 2025-06-02 23:26 | Emergency (ER) | payer OTHER ==
[~2025-06-02] VITALS: Ht 187.9 cm; Wt 142.9 kg
[2025-06-02 23:45] VITALS: BP 140/96
[2025-06-02] MEDS ORDERED: TOPROL XL25 MG PO (23:48)
[2025-06-03] MEDS ORDERED: Ondansetron Hydrochloride 4 MG/2 ML VIAL IV ONE (00:25)
[2025-06-03] MEDS ORDERED: SODIUM CHLORIDE 0.9% 1,000 ML IV ONE (00:25)
[2025-06-03 00:38] LABS: BASO # 0.1 10*3/uL (0.0-0.1); BASO % 0.5 % (0.0-1.0); EOS # 0.1 10*3/uL (0.0-0.4); EOS % 1.2 % (1.0-4.0); MEAN CELL VOLUME 86.4 fl (80.0-94.0); MEAN CORPUSCULAR HGB 29.4 pg (27.0-31.0); MEAN PLATELET VOLUME 9.7 fl (9.6-12.3); MONO # 0.8 10*3/uL (0.1-1.0); MONO % 6.6 % (3.0-9.0); NEUT # 8.5 10*3/uL (2.3-7.9); NEUT % 73.1 % (47.0-73.0); NUCLEATED RED BLOOD CELL 0.0 % (0.0-0.0); NUCLEATED RED BLOOD CELL 0.0 10*3/uL (0.0-0.0); PLATELET COUNT AUTOMATED 194 10*3/uL (130-400); RED CELL DISTRI WIDTH 12.2 % (0-14.5)
[2025-06-03 00:59] LABS: BILIRUBIN Negative (Negative); BLOOD Negative (Negative); CLARITY Clear (Clear); COLOR Yellow (Yellow); KETONE 2+ (Negative); LEUKO ESTERASE Negative (Negative); NITRITE Negative (Negative); PH 6.5 (4.5-8.0); SPECIFIC GRAVITY >= 1.030 (1.001-1.030); UROBILINOGEN 0.2 E.U./dl (0.0-1.0)
[2025-06-03 01:07] LABS: SGPT/ALT 13 U/L (5-49)
[2025-06-03 01:09] LABS: BUN < 5 mg/dl (9-23)
[2025-06-03 01:12] LABS: RBC 16-20 rbc/hpf (0-2); WBC 16-20 wbc/hpf (0-5); YEAST 1+
[2025-06-03] MEDS ORDERED: INSULIN REGULAR, HUMAN 1 UNIT/0.01 ML IV ONE (01:55)
[2025-06-05] MEDS ORDERED: METFORMIN HYDR500 MG PO (08:44)
[2025-06-05] MEDS ORDERED: GLIMEPIRIDE4 M1 PO ×2 (08:44→08:47)
== END 2025-06-03 05:58 | disposition left against medical advice (07) ==
LOC: ED 23:26
PROVIDERS: Emergency Medicine
DX: E87.1 Hypo-osmolality and hyponatremia (principal); R10.31 Right lower quadrant pain; E11.65 Type 2 diabetes mellitus with hyperglycemia; E11.9 Type 2 diabetes mellitus without complications; F41.9 Anxiety disorder, unspecified; E78.5 Hyperlipidemia, unspecified; E66.9 Obesity, unspecified; Z79.84 Long term (current) use of oral hypoglycemic drugs; Z68.30 Body mass index [BMI] 30.0-30.9, adult; Z87.891 Personal history of nicotine dependence